=== PATIENT | female | born 1950 | race Caucasian/White ===

== ENCOUNTER 2020-10-09 09:00 | Emergency (ER) | payer MEDICARE, SELFPAY ==
--- NOTE | ~2020-10-09 | US_ITS ---
EXAMINATION: US venous doppler [facility] EXAM DATE: 10/09/2020 12:19 INDICATION: Left leg pain. TECHNIQUE: Multiple grayscale, color flow and Doppler images of the left lower extremity deep venous system were obtained and reviewed. There is no prior study for comparison. FINDINGS: The left common femoral, femoral and profunda veins demonstrate normal color flow, respirat ory variation, augmentation and compressibility. Compressibility, color flow confirmed within the le ft popliteal, posterior tibial, peroneal, and greater saphenous veins. IMPRESSION: 1. No left lower extremity deep venous thrombosis. Reviewed, dictated and finalized at location B. [employer] [employer]
--- NOTE | ~2020-10-09 | XR_ITS ---
EXAMINATION: XR ankle LT min 3V DATE: 10/09/2020 10:04 INDICATION: Lateral ankle swelling TECHNIQUE: Anteroposterior, lateral, mortise, and additional oblique view of the ankle were obtained. COMPARISON: 05/23/2017 FINDINGS: Soft tissue swelling is seen surrounding the ankle, particularly lateral to the distal fibu la. No fracture is identified. There is mild osteoarthritis of the ankle and midfoot. A chronic soft tissue calcification projects in the anterior subcutaneous soft tissues over the distal leg. IMPRESSION: 1. Ankle soft tissue swelling without acute osseous abnormality identified. Reviewed, dictated and finalized at location A. [facility] [employer]
[2020-10-09 09:28] VITALS: BP 170/69; PULSE 86; RESP 18; TEMP 36.9; O2SAT 98
--- NOTE | 2020-10-09 09:58 | PC.NURSE ---
Pt taken to xray at this time
[2020-10-09 10:15] VITALS: BP 152/57; PULSE 75; RESP 18; O2SAT 98
[2020-10-09] MEDS: LACTATED RINGERS 1,000 ML 999 ML IV CONT (10:41)
[2020-10-09 10:51] LABS: Anion Gap 5 mmol/L (8-16); Blood Urea Nitrogen 17 mg/dL (7-17); CRP < 0.5 mg/dL (<1.0); Calcium 9.4 mg/dL (8.4-10.2); Carbon Dioxide 31 mmol/L (22-30); Chloride 107 mmol/L (98-107); Estimated CRCL calculation 83 ml/min; Estimated Glomerular Filt Rate > 60; Glucose 131 mg/dL (65-105); Potassium 3.9 mmol/L (3.4-5.0); Sodium 143 mmol/L (137-145)
[2020-10-09 11:08] LABS: Erythrocyte Sedimentation Rate 17 mm/hr (0-20)
--- NOTE | 2020-10-09 11:36 | ED.GENADULT ---
HPI - General Adult General Chief complaint: Extremity Problem,Nontraumatic <Vicente Platt PA-C - Last Filed: 10/09/20 12:33> Stated complaint: left ankle swelling <COLBY Bustos Last Filed: 10/09/20 12:33> Time Seen by Provider: 10/09/20 09:28 <COLBY Bustos Last Filed: 10/09/20 12:33> Source: patient and family <COLBY Bustos Last Filed: 10/09/20 12:33> Mode of arrival: ambulatory <COLBY Bustos Last Filed: 10/09/20 12:33> Limitations: no limitations <COLBY Bustos Last Filed: 10/09/20 12:33> History of Present Illness HPI narrative: Patient is a 70-year-old female who presents with her POA for evaluation of left ankle pain and slight swelling patient notes that this began over the last several days patient presents with normal gait and is able to bear weight has history of rheumatoid arthritis followed by specialist for this and is currently on medications for rheumatoid arthritis patient had recent blood work which did not show any increase in inflammatory markers family had, 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 On arrival patient is in no distress and otherwise appears comfortable <COLBY Bustos Last Filed: 10/09/20 12:33> Related Data Home medications: Home Medications Medication Instructions Recorded Confirmed aripiprazole 5 mg tablet 5 mg PO DAILY 07/04/19 05/27/20 aspirin 81 mg tablet,delayed 81 mg PO DAILY 07/04/19 05/27/20 release gabapentin 300 mg capsule 300 mg PO .5 TIMES A DAY cap 07/04/19 05/27/20 methotrexate sodium 2.5 mg tablet 2.5 mg PO WEEKLY 07/04/19 05/27/20 naproxen sodium 220 mg tablet 220 mg PO Q12H 07/04/19 05/27/20 nortriptyline 25 mg capsule 25 mg PO DAILY 07/04/19 05/27/20 abatacept 125 mg/mL subcutaneous 125 mg SUB-Q .COMPLEX 07/05/19 05/27/20 auto-injector prednisone 1 mg tablet 3 mg PO DAILY tablet 07/05/19 05/27/20 ergocalciferol (vitamin D2) 1,250 1,250 mcg PO WEEKLY 05/27/20 05/27/20 mcg (50,000 unit) capsule <Vicente Platt PA-C - Last Filed: 10/09/20 12:33> Allergies/adverse reactions: Allergies Allergy/AdvReac Type Severity Reaction Status Date / Time No Known Allergies Allergy Verified 10/09/20 09:34 <Vicente Platt PA-C - Last Filed: 10/09/20 12:33> Review of Systems Review of Systems: All systems reviewed & are unremarkable except as noted in HPI and below <Vicente Platt PA-C - Last Filed: 10/09/20 12:33> [facility] Past Medical History Medical History: Medical History Alpha thalassemia minor Essential hypertension Hypovitaminosis D IFG (impaired fasting glucose) Impingement syndrome of right shoulder Left ventricular diastolic dysfunction, NYHA class 2 Obesity Recurrent major depressive disorder, in full remission Rheumatoid arthritis involving multiple sites Right shoulder pain <Vicente Platt PA-C - Last Filed: 10/09/20 12:33> Family History Family History: Family History Father Family history of cardiovascular disease Diabetes mellitus, Onset Age: 79 Sibling Carcinoma of colon Mother Family history of malignant neoplasm of breast in first degree relative Family history of congestive heart failure, Onset Age: 70 <Vicente Platt PA-C - Last Filed: 10/09/20 12:33> Social History Social History: Social History Smoking status: Never smoker Alcohol intake: never Gender identity (if verbalized by the patient): Female <Vicente Platt PA-C - Last Filed: 10/09/20 12:33> Exam Narrative: Exam Narrative: GENERAL: Well-appearing, obese, and in no acute distress. HEAD: Normocephalic, atra
[2020-10-09 12:33] VITALS: BP 163/57; PULSE 74; RESP 19; O2SAT 100
[2020-10-09 12:46] VITALS: BP 154/61; PULSE 79; RESP 18; O2SAT 98
== END 2020-10-09 13:04 | disposition home or self-care (01) ==
PROVIDERS: Emergency Medicine Emergency Medical Services; Emergency Provider General Practice; PCP Internal Medicine
DX: M25.572 Pain in left ankle and joints of left foot (principal); D56.0 Alpha thalassemia; I11.0 Hypertensive heart disease with heart failure; I50.30 Unspecified diastolic (congestive) heart failure; M06.9 Rheumatoid arthritis, unspecified; E55.9 Vitamin D deficiency, unspecified; Z79.82 Long term (current) use of aspirin; E66.9 Obesity, unspecified; Z68.33 Body mass index [BMI] 33.0-33.9, adult
CPT/HCPCS: 36415; 73610; 80048; 85652; 86140; 93971; 96361; 96365; 99284; J0131; J7120

== ENCOUNTER 2021-02-14 00:26 | Observation (INO) | payer MEDICARE, MEDICAID, SELFPAY ==
[2021-02-14] VITALS (8 sets, daily range): BP systolic 150–180; BP diastolic 51–74; PULSE 84–88; RESP 16–28; TEMP 36.1–36.6; O2SAT 97–100
--- NOTE | ~2021-02-14 | XR_ITS ---
EXAMINATION: XR shoulder RT min 2V INDICATION: Right shoulder pain TECHNIQUE: Four views of the right shoulder are submitted. COMPARISON: 05/27/2020 FINDINGS: Normal alignment. No fracture. There is advanced osteoarthritis of the acromioclavicular lebron int. A stable sclerotic lesion in the mid shaft of the humerus likely reflects an enchondroma. Soft t issues are unremarkable. IMPRESSION: 1. No acute osseous abnormality. Reviewed, dictated and finalized at location A.
--- NOTE | ~2021-02-14 | CT_ITS ---
EXAMINATION: CT chest abdomen pelvis w con DATE: 02/14/2021 02:15 INDICATION: Back and abdominal pain post fall TECHNIQUE: Computed tomography (CT) of the chest, abdomen, and pelvis was performed with 100 mL Omnip aque-350 intravenous contrast. Automated exposure control and iterative reconstruction technique were employed. The dose-length product was 1612.52 mGy-cm. COMPARISON: CT abdomen and pelvis dated 09/11/2018 FINDINGS: CHEST CT: Mosaic attenuation in the bilateral lungs likely related to expiratory phase of imaging with scattere d subsegmental air trapping due to small airway disease. No pleural effusion or pneumothorax. Cardiom egaly. No pericardial effusion. Thoracic aorta is normal in caliber with no dissection or acute traum atic aortic injury. No pathologically enlarged thoracic lymphadenopathy. Goiter with diffuse enlarge ment and heterogeneous enhancement of the thyroid. There are bridging osteophytes at multiple levels in the thoracic spine including at the margins of the vertebral bodies as well as across the spinous processes consistent with diffuse idiopathic skeletal hyperostosis (DISH). No fracture. ABDOMEN/PELVIS CT: Liver, gallbladder, bilateral adrenal glands and left kidney are normal. Couple subcentimeter low-att enuation likely right renal cysts. Small splenic calcific lesions consistent with old granulomatous d isease. Fatty atrophy of the pancreas most prominent at the head. No abnormal bowel wall thickening o r obstruction. The appendix is not visualized. No pericecal inflammatory change to suggest acute appe ndicitis. Bladder, uterus and bilateral adnexa are unremarkable. No free intraperitoneal gas or fluid . No pathologically enlarged abdominal or pelvic lymphadenopathy. Again seen are numerous small scler otic bone islands in the pelvis and proximal femurs consistent with osteopoikilosis. Lower lumbar spo ndylosis with mild degenerative disc disease but severe bilateral lower lumbar facet osteoarthritis. IMPRESSION: 1. No acute fracture or acute intrathoracic, abdominal or pelvic process. 2. Goiter. 3. Cardiomegaly. Reviewed, dictated and finalized at location A.
--- NOTE | ~2021-02-14 | US_ITS ---
EXAMINATION: US thyroid DATE: 02/14/2021 14:11 INDICATION: Goiter on CT TECHNIQUE: Multiple ultrasound images of the thyroid were obtained. COMPARISON: CT dated 02/14/2021 FINDINGS: The right thyroid lobe measures 7.2 x 4.3 x 3.2 cm. The left thyroid lobe measures 7.8 x 4.6 x 3.5 c m. The thyroid isthmus is thickened measuring 1.6 cm . There is heterogeneous echogenicity with coars ened echotexture throughout the thyroid. There are a few scattered echogenic and shadowing coarse maliha cifications but no discrete thyroid nodules. IMPRESSION: 1. Goiter without discrete nodules which could represent sequela of chronic thyroiditis. Reviewed, dictated and finalized at location A. IMPRESSION: 1. Goiter without discrete nodules which could represent sequela of chronic thy roiditis.
--- NOTE | ~2021-02-14 | CT_ITS ---
EXAMINATION: CT cervical spine wo con DATE: 02/14/2021 02:15 INDICATION: Neck pain TECHNIQUE: Computed tomography (CT) of the cervical spine was performed without intravenous contrast. The dose-length product (DLP) was 445.85 mGy-cm. Automated exposure control and iterative reconstruc tion technique were employed. COMPARISON: None FINDINGS: There is no fracture, dislocation, or subluxation. The vertebral body heights and alignment are normal. There is mild loss of intervertebral disc space height throughout the cervical spine. Th e odontoid is intact. The prevertebral soft tissues are normal. Small degenerative osteophytes projec t from the anterior endplates of multiple vertebral bodies. There is marked enlargement of the thyroi d gland with multiple bilateral thyroid nodules. IMPRESSION: 1. Mild cervical spondylosis without acute findings. 2. Marked enlargement of the thyroid. Reviewed, dictated and finalized at location A.
--- NOTE | ~2021-02-14 | CT_ITS ---
EXAMINATION: CT brain wo con INDICATION: Dizziness and fall COMPARISON: None TECHNIQUE: Standard unenhanced head CT. The dose-length product (DLP) was 605.33 mGy-cm. The mA was a djusted according to patient size. Iterative reconstruction technique was employed. FINDINGS: There is no acute intraparenchymal hemorrhage. No evidence of mass lesion. No evidence of a cute infarction. There is moderate periventricular and subcortical hypodensity probably related to sm all vessel ischemic disease. There is moderate prominence of the sulci and ventricles related to cere bral atrophy. Intracranial calcified cerebral atherosclerosis is noted. There are no extra-axial ghada ections. There is no mass effect or midline shift. Changes in the globes are likely from ocular lens surgery. There are fluid levels in the right sphenoid and right maxillary sinuses. IMPRESSION: 1. No acute intracranial abnormality. 2. Age related findings. Reviewed, dictated and finalized at location A.
--- NOTE | 2021-02-14 00:59 | ECG_ITS ---
Measurements Intervals [place] Rate: 81 P: 55 IN: 260 QRS: -28 QRSD: 104 T: 35 QT: 367 QTc: 428 Interpretive Statements SINUS RHYTHM WITH FIRST DEGREE AV BLOCK DELAYED PRECORDIAL R/S TRANSITION LOW QRS VOLTAGE IN PRECORDIAL LEADS INFERIOR INFARCT, AGE INDETERMINATE BASELINE ARTIFACT- II, III, AVF, V6 ABNORMAL ECG Electronically Signed On 02-14-2021 7:12:13 CDT by Oskar Delvalle D.O.
[2021-02-14 01:25] LABS: Basophils Absolute Auto 0.1 K/mm3 (0.0-0.1); Basophils Percent Auto 0.7 % (0.2-1.2); Eosinophils Absolute Auto 0.2 K/mm3 (0-0.3); Eosinophils Percent Auto 1.6 % (0-4.4); Hematocrit 34.3 % (37.0-47.0); Hemoglobin 10.3 g/dL (12.0-15.0); Immature Granulocyte Absolute 0.03 K/mm3 (0.00-0.031); Immature Granulocyte Percent A 0.2 % (0-0.5); Lymphocytes Percent Auto 9.7 % (18.3-44.2); Mean Corpuscular Hemoglobin 19.9 pg (26-34); Mean Corpuscular Volume 66.3 fl (80-100); Mean Platelet Volume 10.2 fl (7.4-10.4); Monocytes Absolute Auto 0.7 K/mm3 (0.1-0.6); Monocytes Percent Auto 5.5 % (2.6-8.5); Neutrophils Absolute Auto 11.1 K/mm3 (1.3-6.7); Neutrophils Percent Auto 82.3 % (45.5-73.1); Platelet Count Result 326 k/mm3 (150-375); Red Blood Count 5.17 M/mm3 (4.2-5.4); Red Cell Distribution Width 16.1 % (11.5-14.5); White Blood Count 13.4 K/mm3 (4.5-10.0)
[2021-02-14] MEDS: SODIUM CHLORIDE 0.9% IV 1,000 ML 999 ML IV CONT (01:39)
[2021-02-14] MEDS: ONDANSETRON INJ 4 MG/2 ML VIAL IV PUSH (01:39)
[2021-02-14 01:47] LABS: Alanine Aminotransferase 16 U/L (4-35); Albumin Level 3.9 g/dL (3.5-5.1); Alkaline Phosphatase 101 U/L (38-126); Anion Gap 8 mmol/L (8-16); Aspartate Amino Transferase 21 U/L (14-36); Bilirubin,Total 0.4 mg/dL (0.2-1.3); Blood Urea Nitrogen 21 mg/dL (7-17); Calcium 9.5 mg/dL (8.4-10.2); Carbon Dioxide 28 mmol/L (22-30); Chloride 106 mmol/L (98-107); Estimated CRCL calculation 61 ml/min; Estimated Glomerular Filt Rate > 60; Glucose 204 mg/dL (65-110); Magnesium 1.9 mg/dL (1.6-2.3); Potassium 3.7 mmol/L (3.4-5.0); Sodium 142 mmol/L (137-145)
[2021-02-14 01:58] LABS: Troponin I < 0.012 ng/mL (0.000-0.034)
--- NOTE | 2021-02-14 02:29 | ED.GENADULT ---
HPI - General Adult General Chief complaint: Dizziness Stated complaint: ground level fall Time Seen by Provider: 02/14/21 00:50 History of Present Illness HPI narrative: Patient 70-year-old female presents the emergency department with chief complaint of falls. The patient's family reports that recently her doctor increased her dose of gabapentin and that she had 2 ground-level falls today. The patient is reporting that she hurts in her right shoulder and throughout her back chest abdomen and neck. Patient reports is worse with movement and improved with rest. Patient states she also has discomfort in both of her legs that is more of her feeling from her neuropathy. Patient denies fever denies vomiting denies diarrhea Related Data Home Medications Medication Instructions Recorded Confirmed aripiprazole 5 mg tablet 5 mg PO DAILY 07/04/19 12/31/20 aspirin 81 mg tablet,delayed 81 mg PO DAILY 07/04/19 12/31/20 release methotrexate sodium 2.5 mg tablet 2.5 mg PO WEEKLY 07/04/19 12/31/20 naproxen sodium 220 mg tablet 220 mg PO Q12H 07/04/19 12/31/20 nortriptyline 25 mg capsule 25 mg PO DAILY 07/04/19 12/31/20 abatacept 125 mg/mL subcutaneous 125 mg SUB-Q .COMPLEX 07/05/19 12/31/20 auto-injector prednisone 1 mg tablet 3 mg PO DAILY tablet 07/05/19 12/31/20 ergocalciferol (vitamin D2) 1,250 1,250 mcg PO WEEKLY 05/27/20 12/31/20 mcg (50,000 unit) capsule gabapentin 300 mg capsule 300 mg PO .7 times daily cap 12/31/20 12/31/20 Allergies Allergy/AdvReac Type Severity Reaction Status Date / Time No Known Allergies Allergy Verified 12/31/20 10:22 Review of Systems Review of Systems: Narrative: A 10 system review of systems was completed on the patient and is negative except for what is stated in the HPI. Nursing and ancillary documentation was reviewed. [facility] Past Medical History Medical History Alpha thalassemia minor Essential hypertension Hypovitaminosis D IFG (impaired fasting glucose) Impingement syndrome of right shoulder Left ventricular diastolic dysfunction, NYHA class 2 Obesity Recurrent major depressive disorder, in full remission Rheumatoid arthritis involving multiple sites Right shoulder pain Family History Family History Father Family history of cardiovascular disease Diabetes mellitus, Onset Age: 79 Sibling Carcinoma of colon Mother Family history of malignant neoplasm of breast in first degree relative Family history of congestive heart failure, Onset Age: 70 Social History Social History Smoking status: Never smoker Second hand tobacco smoke exposure: No Alcohol intake: never Gender identity (if verbalized by the patient): Female Exam Narrative: Exam Narrative: GENERAL: Well-appearing, well-nourished, and in no acute distress. HEAD: Normocephalic, atraumatic. EYES: PERRLA and EOMI. ENT: Nares clear, no rhinorrhea or epistaxis. Mucous membranes moist. NECK: Supple. CHEST: Clear to auscultation. No respiratory distress. HEART: Regular rate and rhythm. No murmur heard. Normal peripheral pulses. ABDOMEN: Soft, nontender, nondistended, normal active bowel sounds. EXTREMITIES: Normal range of motion. No edema. SKIN: Warm, dry, no rash. NEURO: No focal deficits. Alert and oriented x3. PSYCH: Normal mood and affect. Course Course Emergency Course: The patient underwent a CT scan that showed no evidence of acute abnormality. When standing the patient up to try to ambulate her she complained of low back pain and reports that she just could not ambulate. Several attempts were made to ambulate the patient but given the patient lives independently the case was discussed with the hospitalist and the patient will be admitted for observation for physical therapy and Occupation
[2021-02-14 03:25] LABS: Add Urine Microscopic? YES; Appearance Urine Cloudy (Clear); Bacteria Urine Trace /hpf; Bilirubin Urine Negative (Negative); Blood Urine 1+ (Negative); Color Urine Yellow (Yellow); Glucose Urine UA 1+ mg/dL (Negative); Ketones Urine Negative (Negative); Leukocyte Esterase Ur Negative LEU/UL (Negative); Nitrate Urine Negative (Negative); Protein Urine Negative (Negative); Specific Grav Ur 1.025 (1.001-1.035); Squamous Epithelial Cell Urine Rare /hpf (Few); Urobilinogen Urine Negative mg/dL (<2.0); WBC Urine 0-3 /hpf
--- NOTE | 2021-02-14 05:10 | PM.IMHP ---
H&P: HPI History of Present Illness Date/Time: 02/14/21 05:10 Chief Complaint: Fall Narrative: this is a 70-year-old female with past medical history significant for peripheral neuropathy, hypertension, alpha thalassemia minor, impaired fasting glucose, diastolic heart failure class 2, rheumatoid arthritis on DMARDs. Patient came to the emergency room after she has had 2 falls from her feet mechanical fall no loss of consciousness patient had recently been increased her gabapentin and added extra dose of amitriptyline as per primary care physician due to patient's neuropathy pain. she denies any dizziness lightheadedness near syncope or syncope, no nausea no vomiting no abdominal pain no diarrhea, no shortness of breath no cough no sputum production, no fevers no rigors no chills. she is complaining of back pain bilateral shoulder pain. Preliminary workup has been essentially nonrevealing. Review of Systems Review of Systems: Narrative: back pain and bilateral shoulder pain recurrent falls worsening peripheral neuropathy pain Constitutional: Constitutional: Reports body ache(s), Denies chills, Denies fatigue and Denies fever(s) Eyes: Eyes: Denies change in vision ENT: Denies dysphagia, Denies vertigo, Denies dizziness, Denies nasal congestion, Denies nasal discharge, Denies nasal obstruction and Denies odynophagia Cardiovascular: Cardiovascular: Denies irregular heart rhythm, Denies radiating jaw, neck or arm pain, Denies palpitations, Denies dyspnea, Denies dyspnea on exertion and Denies orthopnea Respiratory: Respiratory: Denies cough and Denies dyspnea Gastrointestinal: Gastrointestinal: Denies abdominal pain, Denies nausea and Denies vomiting Genitourinary: Genitourinary: Reports no additional female genitourinary complaints Musculoskeletal: Musculoskeletal: Reports back pain, Reports myalgias and Reports arthralgias Integumentary/Breasts: Skin/Breast: Reports system reviewed and no additional complaints, except as docu Neurologic: Denies vertigo, Denies dizziness, Denies syncope, Denies focal weakness, Denies Sensory deficit (Neuro) and Reports paresthesias Psychiatric: Psychiatric: Reports no additional psychiatric complaints Endocrine: Endocrine: Reports no additional endocrine complaints Hematologic/Lymphatic: Hematologic/Lymphatic: Reports no additional hematologic/lymphatic complaints Allergic/Immunologic: Allergic/Immunologic: Reports no additional allergic/immunologic complaints PMFSH Past Medical History Medical History Alpha thalassemia minor Essential hypertension Hypovitaminosis D IFG (impaired fasting glucose) Impingement syndrome of right shoulder Left ventricular diastolic dysfunction, NYHA class 2 Obesity Recurrent major depressive disorder, in full remission Rheumatoid arthritis involving multiple sites Right shoulder pain Family History Family History Father Family history of cardiovascular disease Diabetes mellitus, Onset Age: 79 Sibling Carcinoma of colon Mother Family history of malignant neoplasm of breast in first degree relative Family history of congestive heart failure, Onset Age: 70 Social History Social History Smoking status: Never smoker Second hand tobacco smoke exposure: No Alcohol intake: never Gender identity (if verbalized by the patient): Female Meds Home Medications and Allergies Home Medications Medication Instructions Recorded Confirmed Type aripiprazole 5 mg tablet 5 mg PO DAILY 07/04/19 12/31/20 History aspirin 81 mg tablet,delayed 81 mg PO DAILY 07/04/19 12/31/20 History release methotrexate sodium 2.5 mg tablet 2.5 mg PO WEEKLY 07/04/19 12/31/20 History naproxen sodium 220 mg tablet 220 mg PO Q12H 07/04/19 12/31/20 History nortriptyline
[2021-02-14 05:31] LABS: Glucose Point of Care 122 mg/dl (65-105)
--- NOTE | 2021-02-14 06:41 | ADMGEN ---
This patient, Jaelyn Araiza, was admitted to [facility] Surg Room 307-01. Patient/family oriented to hospital policies and general routines including ID bracelet, bed and alarms, visiting hours, pain management, procedures, bathroom and other care routines, personal items, smoking policy, room service/diet, and visiting hours. Information on how to activate the Rapid Response Team has been discussed. Patient/Family are encouraged to report perceived risks to care and to ask questions if they do not understand what they are told or what they should do.
[2021-02-14 08:00] LABS: Glucose Point of Care 97 mg/dl (65-105)
--- NOTE | 2021-02-14 11:50 | PM.IMPN ---
Progress Note: A&P Assessment and Plan (1) Falls frequently: Code(s): R29.6 - Repeated falls Status: Acute Assessment and Plan: place in observation vitals as per unit protocol 1800 calorie restricted diet PT OT consult falls precaution supportive care CT head abdomen pelvis and chest with no acute abnormality (2) Peripheral neuropathy: Code(s): G62.9 - Polyneuropathy, unspecified Status: Acute Assessment and Plan: on gabapentin and amitriptyline had her gabapentin recently increased suspect increasing pending contributing to patient's recurrent falls will hold gabapentin and amitriptyline (3) Rheumatoid arthritis involving multiple sites: Qualifiers: Rheumatoid factor presence: unspecified presence Qualified Code(s): M06.9 - Rheumatoid arthritis, unspecified Code(s): M06.9 - Rheumatoid arthritis, unspecified Status: Acute Assessment and Plan: on methotrexate follow-up in outpatient setting (4) IFG (impaired fasting glucose): Code(s): R73.01 - Impaired fasting glucose Status: Acute Assessment and Plan: 1800 calorie restricted (5) Essential hypertension: Code(s): I10 - Essential (primary) hypertension Status: Acute Assessment and Plan: continue home meds continue to monitor (6) Left ventricular diastolic dysfunction, NYHA class 2: Code(s): I51.9 - Heart disease, unspecified Status: Acute Assessment and Plan: stable continue to monitor (7) Impingement syndrome of right shoulder: Code(s): M75.41 - Impingement syndrome of right shoulder Status: Acute Assessment and Plan: pain management Tylenol as needed (8) Recurrent major depressive disorder, in full remission: Code(s): F33.42 - Major depressive disorder, recurrent, in full remission Status: Acute Assessment and Plan: continue aripiprazole (9) Alpha thalassemia minor: Code(s): D56.3 - Thalassemia minor Status: Acute Assessment and Plan: continue to monitor stable (10) Obesity: Code(s): E66.9 - Obesity, unspecified Status: Acute Assessment and Plan: lifestyle and diet modifications Subjective Date/time seen: 02/14/21 11:50 Interval history: admitted earlier today. Sat on the chair with help of physical therapy/ nursing staff. Complains of back pain from the fall. No shortness of breath or chest pain. Denies any dizziness /lightheadedness Review of Systems Review of Systems: All systems reviewed & are unremarkable except as noted in HPI and below ( HPI) Objective Data Vital Signs Vital Signs: Vital Signs - 24 hr 02/14/21 00:38 02/14/21 00:45 02/14/21 03:09 Temperature 97.8 F Pulse Rate 88 88 84 Respiratory Rate 20 28 H 18 Blood Pressure 173/73 H 180/54 H 177/74 H Pulse Oximetry 98 99 98 02/14/21 06:05 Temperature Pulse Rate 86 Respiratory Rate Blood Pressure 158/72 H Pulse Oximetry 99 Intake/Output Intake/Output: Intake & Output 02/11/21 02/12/21 02/13/21 02/14/21 23:59 23:59 23:59 23:59 Intake Total 1360 Balance 1360 Meds/Results Medications: Active Medications Generic Name Dose Route Start Last Admin Trade Name Freq PRN Reason Stop Dose Admin Morphine Sulfate 4 mg 02/14/21 04:40 Morphine Sulfate (*Crx) 4 Mg/Ml Inj IV PUSH Q2H PRN Pain Rated 7-10 Ondansetron HCl 4 mg 02/14/21 04:40 Ondansetron Inj 4 Mg/2 Ml Vial IV PUSH Q4H PRN Nausea Radiology Results: ITS Impressions Shoulder X-Ray 02/14/21 10:34 IMPRESSION: 1. No acute osseous abnormality. Labs Labs: Laboratory Results - last 24 hr 02/14/21 02/14/21 02/14/21 01:18 01:18 01:18 WBC 13.4 H RBC 5.17 Hgb 10.3 L Hct 34.3 L MCV 66.3 L MCH 19.9 L MCHC 30.0 L RDW 16.1 H Plt Count 326 MPV 10.2 Immature Gran % (Auto) 0.2 Neut
[2021-02-14 12:44] LABS: Glucose Point of Care 101 mg/dl (65-105)
[2021-02-14 17:23] LABS: Glucose Point of Care 123 mg/dl (65-105)
[2021-02-14] MEDS: HYDROcodone/acetaminophen (*CRX) 5-325 MG TABLET 1 TAB PO (18:06)
[2021-02-14 19:02] LABS: Thyroid Stimulating Hormone Reflex 0.748 uIU/mL (0.465-4.68)
[2021-02-14] MEDS: MORPHINE SULFATE (*CRX) 4 MG/ML INJ IV PUSH (20:58)
[2021-02-14] MEDS: NORTRIPTYLINE HCL 25 MG CAPSULE 75 MG PO (21:05)
[2021-02-14] MEDS: GABAPENTIN 300 MG CAPSULE 600 MG PO (21:06)
[2021-02-14 21:58] LABS: Glucose Point of Care 147 mg/dl (65-105)
[2021-02-15 03:44] VITALS: O2SAT 96
[2021-02-15 06:00] VITALS: BP 138/47; PULSE 84; RESP 17; TEMP 37; O2SAT 100
[2021-02-15 06:36] LABS: Basophils Absolute Auto 0.1 K/mm3 (0.0-0.1); Basophils Percent Auto 0.8 % (0.2-1.2); Eosinophils Absolute Auto 0.3 K/mm3 (0-0.3); Eosinophils Percent Auto 3.1 % (0-4.4); Hematocrit 32.3 % (37.0-47.0); Hemoglobin 9.7 g/dL (12.0-15.0); Immature Granulocyte Absolute 0.04 K/mm3 (0.00-0.031); Immature Granulocyte Percent A 0.4 % (0-0.5); Lymphocytes Absolute Auto 1.45 K/mm3 (0.9-3.2); Lymphocytes Percent Auto 14.6 % (18.3-44.2); Mean Corpuscular Volume 66.5 fl (80-100); Mean Platelet Volume 10.7 fl (7.4-10.4); Monocytes Absolute Auto 0.7 K/mm3 (0.1-0.6); Monocytes Percent Auto 6.5 % (2.6-8.5); Neutrophils Absolute Auto 7.4 K/mm3 (1.3-6.7); Neutrophils Percent Auto 74.6 % (45.5-73.1); Platelet Count Result 336 k/mm3 (150-375); Red Blood Count 4.86 M/mm3 (4.2-5.4)
[2021-02-15 06:47] LABS: Anion Gap 7 mmol/L (8-16); Blood Urea Nitrogen 17 mg/dL (7-17); Calcium 9.1 mg/dL (8.4-10.2); Carbon Dioxide 27 mmol/L (22-30); Chloride 108 mmol/L (98-107); Estimated CRCL calculation 69 ml/min; Estimated Glomerular Filt Rate > 60; Glucose 106 mg/dL (65-110); Potassium 3.7 mmol/L (3.4-5.0); Sodium 142 mmol/L (137-145)
[2021-02-15 07:55] LABS: Glucose Point of Care 120 mg/dl (65-105)
[2021-02-15 08:45] VITALS: O2SAT 96
[2021-02-15] MEDS: GABAPENTIN 300 MG CAPSULE 600 MG PO ×2 (09:45→12:34)
[2021-02-15] MEDS: POTASSIUM CHLORIDE 10 MEQ TABLET.ER PO (10:33)
[2021-02-15] MEDS: ASPIRIN 81 MG ENTERIC TABLET PO (10:33)
[2021-02-15 10:34] VITALS: PULSE 86
[2021-02-15] MEDS: FUROSEMIDE 40 MG TABLET PO (10:34)
[2021-02-15] MEDS: FOLIC ACID 1 MG TABLET PO (10:34)
[2021-02-15] MEDS: METOPROLOL SUCCINATE EXT REL 25 MG TABCR PO (10:34)
[2021-02-15] MEDS: predniSONE 1 MG TABLET 3 MG PO (10:34)
[2021-02-15 12:28] LABS: Glucose Point of Care 132 mg/dl (65-105)
[2021-02-15 14:00] VITALS: BP 142/49; PULSE 85; RESP 20; TEMP 36.4; O2SAT 100
--- NOTE | 2021-02-15 15:49 | PM.IMPN ---
Progress Note: A&P Assessment and Plan (1) Falls frequently: Code(s): R29.6 - Repeated falls Status: Acute Assessment and Plan: place in observation vitals as per unit protocol 1800 calorie restricted diet PT OT consult falls precaution supportive care CT head abdomen pelvis and chest with no acute abnormality (2) Peripheral neuropathy: Code(s): G62.9 - Polyneuropathy, unspecified Status: Acute Assessment and Plan: on gabapentin and amitriptyline had her gabapentin recently increased suspect increasing pending contributing to patient's recurrent falls will hold gabapentin and amitriptyline Will lower the gabapentin dose to 300 mg 5 times a day and continue nortriptyline 75 mg at bedtime (3) Rheumatoid arthritis involving multiple sites: Qualifiers: Rheumatoid factor presence: unspecified presence Qualified Code(s): M06.9 - Rheumatoid arthritis, unspecified Code(s): M06.9 - Rheumatoid arthritis, unspecified Status: Acute Assessment and Plan: on methotrexate follow-up in outpatient setting (4) IFG (impaired fasting glucose): Code(s): R73.01 - Impaired fasting glucose Status: Acute Assessment and Plan: 1800 calorie restricted (5) Essential hypertension: Code(s): I10 - Essential (primary) hypertension Status: Acute Assessment and Plan: continue home meds continue to monitor (6) Left ventricular diastolic dysfunction, NYHA class 2: Code(s): I51.9 - Heart disease, unspecified Status: Acute Assessment and Plan: stable continue to monitor (7) Impingement syndrome of right shoulder: Code(s): M75.41 - Impingement syndrome of right shoulder Status: Acute Assessment and Plan: pain management Tylenol as needed (8) Recurrent major depressive disorder, in full remission: Code(s): F33.42 - Major depressive disorder, recurrent, in full remission Status: Acute Assessment and Plan: continue aripiprazole (9) Alpha thalassemia minor: Code(s): D56.3 - Thalassemia minor Status: Acute Assessment and Plan: continue to monitor stable (10) Obesity: Code(s): E66.9 - Obesity, unspecified Status: Acute Assessment and Plan: lifestyle and diet modifications Additional Plan discussed with therapy and nursing staff Work with therapy today improving however which She is still needing assistance suggested rehab placement she declines home health or rehab placement Discussed with her sister who is the [id number]. She is agreeable for home health placement Will work with therapy in the morning tomorrow and go from there Subjective Date/time seen: 02/15/21 15:49 Interval history: feels much better today work with therapy with improved mobility but he still needed some assistance. Spoke with the therapist as well as the nursing staff. Call her power district attorney who is her sister over the phone and discussed and updated her status She reports her back pain is much better Review of Systems Review of Systems: All systems reviewed & are unremarkable except as noted in HPI and below ( HPI) Exam Narrative: Exam Narrative: GENERAL: Well-appearing, well-nourished, and in no acute distress. HEAD: Normocephalic, atraumatic. EYES: PERRLA and EOMI. ENT: Nares clear, no rhinorrhea or epistaxis. Mucous membranes moist. NECK: Supple. CHEST: Clear to auscultation. No respiratory distress. HEART: Regular rate and rhythm. No murmur heard. Normal peripheral pulses. ABDOMEN: Soft, nontender, nondistended, normal active bowel sounds. EXTREMITIES: Normal range of motion. No edema. SKIN: Warm, dry, no rash. NEURO: No focal deficits. Alert and oriented x3. PSYCH: Normal mood and affect. Objective Data Vital Signs Vital Signs: Vital Signs - 24 hr 02/14/21 20:15 02/14/21 22:00 02/15/21 03:44 Temperature 97.6
[2021-02-15 17:48] LABS: Glucose Point of Care 163 mg/dl (65-105)
[2021-02-15] MEDS: GABAPENTIN 300 MG CAPSULE PO ×2 (18:32→20:24)
[2021-02-15] MEDS: NORTRIPTYLINE HCL 25 MG CAPSULE 75 MG PO (20:24)
[2021-02-15 21:31] LABS: Glucose Point of Care 124 mg/dl (65-105)
[2021-02-15 22:00] VITALS: BP 146/58; PULSE 81; RESP 18; TEMP 36.2; O2SAT 99
[2021-02-16 06:00] VITALS: BP 140/62; PULSE 84; RESP 18; TEMP 36.6; O2SAT 91
[2021-02-16 08:59] VITALS: PULSE 80; RESP 18; O2SAT 91
[2021-02-16] MEDS: FUROSEMIDE 40 MG TABLET PO (08:59)
[2021-02-16] MEDS: ASPIRIN 81 MG ENTERIC TABLET PO (08:59)
[2021-02-16] MEDS: FOLIC ACID 1 MG TABLET PO (08:59)
[2021-02-16] MEDS: POTASSIUM CHLORIDE 10 MEQ TABLET.ER PO (08:59)
[2021-02-16] MEDS: METOPROLOL SUCCINATE EXT REL 25 MG TABCR PO (08:59)
[2021-02-16] MEDS: predniSONE 1 MG TABLET 3 MG PO (08:59)
[2021-02-16] MEDS: GABAPENTIN 300 MG CAPSULE PO ×4 (09:00→17:37)
[2021-02-16 11:02] LABS: Glucose Point of Care 113 mg/dl (65-105)
[2021-02-16 14:00] VITALS: BP 119/42; PULSE 77; RESP 18; TEMP 36.2; O2SAT 99
--- NOTE | 2021-02-16 16:13 | PM.DS ---
DS: Admitting Diagnosis Admitting Diagnosis Admitting Diagnosis: frequent falls back pain and unable to ambulate DS: Discharge Diagnosis Discharge Diagnosis (1) Peripheral neuropathy: Code(s): G62.9 - Polyneuropathy, unspecified Status: Acute (2) Falls frequently: Code(s): R29.6 - Repeated falls Status: Acute (3) Inability to walk: Code(s): R26.2 - Difficulty in walking, not elsewhere classified Status: Acute (4) Rheumatoid arthritis involving multiple sites: Qualifiers: Rheumatoid factor presence: unspecified presence Qualified Code(s): M06.9 - Rheumatoid arthritis, unspecified Code(s): M06.9 - Rheumatoid arthritis, unspecified Status: Acute (5) Alpha thalassemia minor: Code(s): D56.3 - Thalassemia minor Status: Acute DS: Summary Hospital Course Hospital Course: this is a 70-year-old female with past medical history significant for peripheral neuropathy, hypertension, alpha thalassemia minor, impaired fasting glucose, diastolic heart failure class 2, rheumatoid arthritis on DMARDs. Patient came to the emergency room after she has had 2 falls from her feet mechanical fall no loss of consciousness patient had recently been increased her gabapentin and added extra dose of amitriptyline as per primary care physician due to patient's neuropathy pain. she denies any dizziness lightheadedness near syncope or syncope, no nausea no vomiting no abdominal pain no diarrhea, no shortness of breath no cough no sputum production, no fevers no rigors no chills. she is complaining of back pain bilateral shoulder pain. Preliminary workup has been essentially nonrevealing. she had CT scan chest abdomen pelvis which did not show any acute abnormality. She was admitted for observation and PT OT evaluation. She was placed on a lower dose of gabapentin 300 mg 5 times a day however continued on nortriptyline 75 mg at bedtime. she improved significantly with resolution of her symptoms and back pain. She worked with therapy who suggested that she goes for further rehabilitation however she refused to go to any subacute rehabilitation. She and her power in home aide are agreeable to go for home health which was arranged at the time of discharge. She remained hemodynamically stable throughout her hospitalization. Status at Discharge Functional status at discharge: uses cane/walker Overall status at discharge: patient is progressing back to baseline Time Spent with Patient Time attestation: Total time spent providing and/or coordinating discharge services:45 minutes Exam Narrative: Exam Narrative: GENERAL: Well-appearing, well-nourished, and in no acute distress. HEAD: Normocephalic, atraumatic. EYES: PERRLA and EOMI. ENT: Nares clear, no rhinorrhea or epistaxis. Mucous membranes moist. NECK: Supple. CHEST: Clear to auscultation. No respiratory distress. HEART: Regular rate and rhythm. No murmur heard. Normal peripheral pulses. ABDOMEN: Soft, nontender, nondistended, normal active bowel sounds. EXTREMITIES: Normal range of motion. No edema. SKIN: Warm, dry, no rash. NEURO: No focal deficits. Alert and oriented x3. PSYCH: Normal mood and affect. DS: Data Data Completed and Pending Labs on day of discharge: Labs from last 24 hours 02/16/21 02/15/21 02/15/21 10:59 20:30 17:45 POC Capillary Glucose 113 H 124 H 163 H Imaging Radiologist's impression: ITS Impressions Shoulder X-Ray 02/14/21 10:34 IMPRESSION: 1. No acute osseous abnormality. Head CT 02/14/21 15:56 IMPRESSION: 1. No acute intracranial abnormality. 2. Age related findings. Cervical Spine CT 02/14/21 15:59 IMPRESSION: 1. Mild cervical spondylosis without acute findings. 2. Marked enlargement of the thyroid. Thyroid Ultrasound 02/14/21 16:50 IMPRESSION: 1. Goiter without discrete nodules which could represent sequela of chronic thyroiditis. Chest/Abdomen/Pelv
[2021-02-16 17:12] LABS: Glucose Point of Care 126 mg/dl (65-105)
== END 2021-02-16 17:55 | disposition home health service (06) ==
LOC: ANHED 04:45 → ANH3MEDSUR 02-16 16:13
PROVIDERS: Admitting Provider Internal Medicine; Emergency Provider Emergency Medicine; PCP Internal Medicine; Visit Provider Internal Medicine
DX: G62.9 Polyneuropathy, unspecified (principal); R29.6 Repeated falls; R42 Dizziness and giddiness; D56.3 Thalassemia minor; E55.9 Vitamin D deficiency, unspecified; I11.0 Hypertensive heart disease with heart failure; I50.30 Unspecified diastolic (congestive) heart failure; M75.41 Impingement syndrome of right shoulder; R73.01 Impaired fasting glucose; F33.42 Major depressive disorder, recurrent, in full remission; M06.9 Rheumatoid arthritis, unspecified; E66.9 Obesity, unspecified; Z68.33 Body mass index [BMI] 33.0-33.9, adult; Z79.82 Long term (current) use of aspirin
CPT/HCPCS: 36415; 70450; 71260; 72125; 73030; 74177; 76536; 80048; 80053; 81001; 82948; 83605; 83735; 84443; 84484; 85025; 93005; 96361; 96374; 96375; 97110; 97116; 97162; 97165; 97530; 97535; 99285; A9270; G0378; J2270; J2405; J7030; Q9967

== ENCOUNTER → 2023-08-05 10:13 | Outpatient (CLI) | payer MEDICARE, MEDICAID, SELFPAY ==
--- NOTE | ~2023-08-05 | XR_ITS ---
Right Humerus Technique: AP and lateral views were obtained. Clinical History: Pain Findings: No fracture or dislocation is seen. Osseous alignment is anatomic. Probable small chondroid lesion of the distal humeral shaft measuring 6-7 mm. There is mild degenerative change of the AC marcelina nt. Soft tissues are unremarkable. Impression: Mild degenerative changes AC joint. 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 Reviewed, dictated and finalized at location M. DE ATTENDANT Impression: Mild degenerative changes AC joint. 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
--- NOTE | ~2023-08-05 | XR_ITS ---
Right Shoulder Technique: AP and scapular Y views were obtained. Clinical History: Pain Findings: No fracture or dislocation is seen. Osseous alignment is anatomic. There is mild degenerati ve change of the glenohumeral and acromioclavicular joints.. Soft tissues are unremarkable. Impression: Mild degenerative changes, as above. Reviewed, dictated and finalized at location . H TANK CONTROLLER Impression: Mild degenerative changes, as above.
--- NOTE | ~2023-08-05 | XR_ITS ---
Clinical Indication: Shortness of breath PA and lateral views of the chest: Comparison: None Findings: The lungs are clear, without evidence of focal consolidation or pleural effusion. Cardiome diastinal silhouette is within normal limits. Bones and soft tissues are unremarkable. Impression: Normal chest. Reviewed, dictated and finalized at [facility]. ING CHEF Impression: Normal chest.
== END ==
PROVIDERS: PCP Nurse Practitioner Family; Visit Provider Nurse Practitioner Family
DX: M79.601 Pain in right arm (principal); R06.02 Shortness of breath; M19.012 Primary osteoarthritis, left shoulder
CPT/HCPCS: 71046; 73030; 73060

== ENCOUNTER 2023-12-02 09:50 | Outpatient (CLI) | payer MEDICARE, MEDICAID, SELFPAY ==
--- NOTE | ~2023-12-02 | XR_ITS ---
XR chest 2V 12/02/2023 10:09 Indication: Persistent cough and cold symptoms Procedure: 2 view chest Comparison: 08/05/2023 Findings: Heart size normal. No focal air space disease, pulmonary edema, pleural effusion or suspect ed pneumothorax. No acute osseous abnormality. Impression: 1: No acute cardiopulmonary disease. Reviewed, dictated and finalized at location B. Impression: 1: No acute cardiopulmonary disease.
== END 2023-12-02 09:51 | disposition home or self-care (01) ==
PROVIDERS: PCP Nurse Practitioner Family; Visit Provider Nurse Practitioner Family
DX: R05.9 Cough, unspecified (principal)
CPT/HCPCS: 71046

== ENCOUNTER 2025-01-01 12:49 | Outpatient (CLI) | payer MEDICARE, MEDICAID, SELFPAY ==
--- NOTE | ~2025-01-01 | US_ITS ---
EXAMINATION:US venous doppler LE BI INDICATION:Skin changes TECHNIQUE: Multiple grayscale, color flow and Doppler images of the right and left lower extremity de ep venous systems were obtained and reviewed. COMPARISON:No prior studies for comparison. FINDINGS: The common femoral, superficial femoral and popliteal veins demonstrate normal respiratory variation, augmentation and compressibility. Color flow is also seen within the posterior tibial, pe roneal, greater saphenous and profunda veins. IMPRESSION: 1: No lower extremity deep venous thrombosis. Reviewed, dictated and finalized at location A.
--- OUTSIDE RECORDS SUMMARY | 2025-01-01 12:56 | XMS_ITS | CONTINUITY OF CARE DOCUMENT ---
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 Name Role Phone Osiel KAY, [place] Unavailable LELE KAY, HAILEE L Unavailable HAILEE ROYAL MD Unavailable PROBLEMS Condition Status Date Provider Notes Edema active ARSLAN CARLISLE MD UPPER RESPIRATORY INFECTION, ACUTE completed - ARSLAN CARLISLE MD Rheumatoid arthritis active ARSLAN CARLISLE MD HTN essential active ARSLAN CARLISLE MD Depression active ARSLAN CARLISLE MD ENCOUNTERS Date Type Provider Location Encounter Diag nosis - In-person encounter Office Visit ARSLAN CARLISLE MD [facility] - In-person encounter Office Visit ARSLAN CARLISLE MD [facility] - In-person encounter Office Visit ARSLAN CARLISLE MD [facility] - In-person encounter Office Visit ARSLAN CARLISLE MD [facility] - In-person encounter Office Visit ARSLAN CARLISLE MD [facility] - In-person encounter Office Visit ARSLAN CARLISLE MD [facility] - In-person encounter Office Visit ARSLAN CARLISLE MD [facility] - In-person encounter Office Visit ARSLAN CARLISLE MD [facility] - In-person encounter Office Visit ARSLAN CARLISLE MD [facility] UPPER RESPIRATORY INFECTION, ACUTERheumatoid arthritisHTN essentialDepression - In-person encounter Office Visit [facility] - In-person encounter Office Visit [facility] - In-person encounter Office Visit [facility] - In-person encounter Office Visit [facility] - In-person encounter Office Visit [facility] - In-person encounter Office Visit [facility] - In-person encounter Office Visit [facility] - In-person encounter Office Visit [facility] RESULTS Date Observation Value Provider Reference Range Interpretation Location lipoprotein, beta, serum, point, quantitative, calculated 109 mg/dL [facility] 0-99 High very low density lipoproteins 26 mg/dL [facility] 5-40 HDL cholesterol, serum 63 mg/dL [facility] >39 triglyceride, serum, random 132 mg/dL [facility] 0-149 cholesterol, serum 198 mg/dL [facility] [phone]/03/ 02 alanine aminotransferase (SGPT), serum 12 1/L [facility] 0-32 aspartate aminotransferase (SGOT), serum 19 1/L [facility] 0-40 alkaline phosphatase, serum 82 1/L [facility] 39-117 bilirubin, serum, total 0.4 mg/dL [facility] 0.0-1.2 albumin/globulin ratio, serum 2.0 [facility] 1.2-2.2 globulin, serum 2.1 [facility] 1.5-4.5 albumin, serum 4.1 g/dL [facility] 3.6-4.8 protein, total, serum 6.2 g/dL [facility] 6.0-8.5 calcium, serum 9.3 mg/dL [facility] 8.7-10.3 carbon dioxide, venous blood 20 mmol/L [facility] 18-29 chloride, serum 102 mmol/L [facility] 96-106 potassium, serum 4.1 mmol/L [facility] 3.5-5.2 sodium, serum 143 mmol/L [facility] [phone]/03/ 02 urea nitrogen/creatinine ratio, serum 25 [facility] 12-28 eGFR if not 89 mL/min/{1 .73_m2} [facility] >59 creatinine, serum 0.69 mg/dL [facility] 0.57-1.00 urea nitrogen, blood 17 mg/dL [facility] 8-27 blood glucose, random 128 mg/dL [facility] 65-99 High basophil count, absolute 0.1 x10E3/uL [facility] 0.0-0.2 Eosinophil Absolute Count 0.2 X10E3/UL [facility] 0.0-0.4 monocyte count, blood, automated 0.6 X10E3/UL [facility] 0.1-0.9 lymphocyte count, blood, automated 1.1 X10E3/UL [facility] 0.7-3.1 Absolute Neutrophils 5.5 X10E3/UL [facility] 1.4-7.0 basophils as percent of blood leukocytes 1 % [facility] Not Estab. eosinophils as percent of blood leukocytes 3 % [facility] Not Estab. monocytes as percent of blood leukocytes 8 % [facility] Not Estab. lymphocytes as percent of blood leukocytes 15 % [facility] Not Estab. neutrophils as percent of blood leukocytes 73 % [facility] Not Estab. platelet count 350 X10E3/UL [facility] [phone]/03/ 02 red blood cell distribution width 16.7 % [facility] 12.3-15.4 High mean corpuscular hemoglobin concentration, RBC 31.9 G/DL [facility] 31.5-35.7 mean corpuscular hemoglobin, RBC 20.0 pg [facility] 26.6-33.0 Low mean corpuscular volume, RBC 63 fL [facility] 79-97 Low hematocrit, blood 32.9 % [facility] 34.0-46.6 Low hemoglobin, blood 10.5 g/dL [facility] 11.1-15.9 Low erythrocyte (RBC) count 5.25 X10E6/UL [facility] 3.77-5.28 leukocyte count, blood 7.5 X10E3/UL [facility] 3.4-10.8 hemoglobin A1C, blood, as % of total hemoglobin 6.0 % [facility] 4.8-5.6 High thyroid stimulating hormone, serum 0.367 ??IU/ML [facility] 0.270 - 4.200 very low density lipoproteins 24.6 mg/dL [facility] 5.0 - 40.0 LDL/HDL (low-density lipoprotein/high-den sity lipoprotein) ratio 2.0 [facility], beta, serum, point, quantitative, calculated 126.4 (?) [facility] 0.0 - 100.0 High HDL cholesterol, serum 62.0 mg/dL [facility] 45.0 - 65.0 cholesterol, serum 213.0 mg/dL [facility] 0.0 - 200.0 High triglyceride, serum, fasting 123.0 mg/dL [facility] 0.0 - 150.0 anion gap, serum 10.4 [facility] - albumin/globulin ratio, serum 2.9 g/dL [facility] 1.1 - 2.5 High globulin, serum 2.2 [facility] 2.3 - 3.8 Low urea nitrogen/creatinine ratio, serum 17.5 [facility] - Estimated Glomerular Filtration Rate (calc) 76.0 (?) [facility] 59.0 - chloride, serum 103.6 mmol/L [facility] 98.0 - 107.0 potassium, serum 4.3 mmol/L [facility] 3.5 - 5.1 sodium, serum 144.0 mmol/L [facility] 136.0 - 145.0 creatinine, serum 0.8 mg/dL [facility] 0.5 - 1.0 carbon dioxide, venous blood 30.0 mmol/L [facility] 23.0 - 31.0 albumin, serum 4.4 g/dL [facility] 3.5 - 5.2 calcium, serum 9.9 mg/dL [facility] 8.6 - 10.2 aspartate aminotransferase (SGOT), serum 14.0 1/L [facility] 0.0 - 32.0 alkaline phosphatase, serum 85.0 1/L [facility] 40.0 - 130.0 alanine aminotransferase (SGPT), serum 10.0 1/L [facility] 0.0 - 33.0 protein, total, serum 6.6 g/dL [facility] 6.6 - 8.7 bilirubin, serum, total 0.4 mg/dL [facility] 0.0 - 1.2 urea nitrogen, blood 14.0 mg/dL [facility] 8.0 - 23.0 blood glucose, random 142.0 mg/dL [facility] 74.0 - 99.0 High red blood cell distribution width, size density 39.2 fL [facility] - immature granulocytes, percentage of total cells, blood 0.3 % [facility] - nucleated red blood cells as percent of blood leukocytes 0.0 % [facility] - red blood cell (erythrocyte) count, per high power field 0.0 10*3/UL [facility] - eosinophils as percent of blood leukocytes 1.0 % [facility] - neutrophils as percent of blood leukocytes 86.9 % [facility] - Absolute Neutrophils 8.7 CELLS/UL [facility] 1.5 - 7.8 High basophils as percent of blood leukocytes 0.9 % [facility] - Absolute Basophils 0.1 CELLS/UL [facility] 0.0 - 0.2 monocytes as percent of blood leukocytes 2.7 % [facility] - Absolute Monocytes 0.3 CELLS/UL [facility] 0.2 - 1.0 lymphocytes as percent of blood leukocytes 8.2 % [facility] - Absolute Lymphocytes 0.8 CELLS/UL [facility] 0.9 - 3.9 Low mean platelet volume 11.5 (?) [facility] - platelet count 394.0 THOUSAND/ UL [facility] 100.0 - 400.0 mean corpuscular hemoglobin concentration, RBC 29.1 G/DL [facility] 31.0 - 38.0 Low mean corpuscular hemoglobin, RBC 19.6 pg [facility] 25.0 - 35.0 Low mean corpuscular volume, [facility] - 100.0 Low hematocrit, blood 35.1 % [facility] 35.0 - 55.0 hemoglobin, blood 10.2 g/dL [facility] 11.5 - 16.5 Low erythrocyte count, whole blood 5.2 MILLION/U L [facility] 3.5 - 5.5 hemoglobin A1C, blood, as % of total hemoglobin 5.6 % [facility] 4.0 - 6.0 alanine aminotransferase (SGPT), serum 16 1/L [facility] aspartate aminotransferase (SGOT), serum 22 1/L [facility] creatinine, serum 0.82 mg/dL [facility] potassium, serum 4.5 mmol/L [facility] Naz[facility] sodium, serum 139 mmol/L [facility] Nazario platelet count 334 10*3/uL [facility] hematocrit, blood 32.5 % [facility] alanine aminotransferase (SGPT), serum 16 1/L [facility] aspartate aminotransferase (SGOT), serum 16 1/L [facility] blood glucose, random 182 mg/dL [facility] creatinine, serum 0.85 mg/dL [facility] urea nitrogen, blood 16 mg/dL [facility] potassium, serum 4.2 mmol/L [facility] sodium, serum 139 mmol/L [facility] platelet count 366 10*3/mm3 [facility] hematocrit, blood 33.1 % [facility] alanine aminotransferase (SGPT), serum 17 1/L [facility] aspartate aminotransferase (SGOT), serum 21 1/L [facility] creatinine, serum 0.75 mg/dL [facility] potassium, serum 3.9 mmol/L [facility] sodium, serum 139 mmol/L [facility] globulins, serum, total 2.2 g/dL [facility] C-reactive protein, serum 6.9 mg/dL [facility] Estimated Glomerular Filtration Rate (calc) 84 mL/min/{1 .73_m2} [facility] albumin/globulin ratio, serum 2.0 [facility] protein, total, serum 6.5 g/dL [facility] albumin, serum 4.3 g/dL [facility] bilirubin, serum, total 0.4 mg/dL [facility] alkaline phosphatase, serum 88 1/L [facility] alanine aminotransferase (SGPT), serum 13 1/L [facility] aspartate aminotransferase (SGOT), serum 16 1/L [facility] calcium, serum 9.0 mg/dL [facility] blood glucose, fasting 226 mg/dL [facility] creatinine, serum 0.76 mg/dL [facility] urea nitrogen, blood 16 mg/dL [facility] carbon dioxide, serum, total 21 mmol/L [facility] chloride, serum 102 mmol/L [facility] potassium, serum 3.9 mmol/L [facility] sodium, serum 139 mmol/L [facility] platelet count 366 10*3/uL [facility] red blood cell distribution width 16.2 % [facility] mean corpuscular hemoglobin concentration, RBC 31.7 g/dL [facility] mean corpuscular hemoglobin, RBC 20.0 pg [facility] mean corpuscular volume, RBC 63 fL [facility] hematocrit, blood 33.1 % [facility] hemoglobin, blood 10.5 g/dL [facility] erythrocyte (RBC) count 5.26 10*6/mm3 [facility] neutrophils, segmented as percent of blood leukocytes 8.7 % [facility] monocyte count, blood 0.2 10*3/mm3 [facility] lymphocyte count, blood 0.8 10*3/mm3 [facility] neutrophils as percent of blood leukocytes 86 % [facility] monocytes as percent of blood leukocytes 2 % [facility] lymphocytes as percent of blood leukocytes 8 % [facility] leukocyte count, blood 8.9 10*3/mm3 [facility] C-reactive protein, serum 8.2 mg/dL [facility] globulins, serum, total 2.3 g/dL [facility] Estimated Glomerular Filtration Rate (calc) 71 mL/min/{1 .73_m2} [facility] albumin/globulin ratio, serum 2.0 [facility] protein, total, serum 6.5 g/dL [facility] albumin, serum 4.6 g/dL [facility] bilirubin, serum, total 0.6 mg/dL [facility] alkaline phosphatase, serum 69 1/L [facility] alanine aminotransferase (SGPT), serum 14 1/L [facility] aspartate aminotransferase (SGOT), serum 22 1/L [facility] calcium, serum 9.6 mg/dL [facility] blood glucose, fasting 110 mg/dL [facility] creatinine, serum 0.88 mg/dL [facility] urea nitrogen, blood 24 mg/dL [facility] carbon dioxide, serum, total 23 mmol/L [facility] chloride, serum 102 mmol/L [facility] potassium, serum 4.4 mmol/L [facility] sodium, serum 141 mmol/L [facility] platelet count 393 10*3/uL [facility] red blood cell distribution width 15.7 % [facility] mean corpuscular hemoglobin concentration, RBC 31.9 g/dL [facility] mean corpuscular hemoglobin, RBC 20.3 pg [facility] mean corpuscular volume, RBC 64 fL [facility] hematocrit, blood 32.9 % [facility] hemoglobin, blood 10.5 g/dL [facility] erythrocyte (RBC) count 5.17 10*6/mm3 [facility] neutrophils, segmented as percent of blood leukocytes 7.2 % [facility] monocyte count, blood 0.4 10*3/mm3 [facility] lymphocyte count, blood 1.1 10*3/mm3 [facility] neutrophils as percent of blood leukocytes 81 % [facility] monocytes as percent of blood leukocytes 5 % [facility] lymphocytes as percent of blood leukocytes 12 % [facility] leukocyte count, blood 8.8 10*3/mm3 [facility] bilirubin, serum, direct 0.14 mg/dL [facility] protein, total, serum 6.7 g/dL [facility] albumin, serum 4.3 g/dL [facility] bilirubin, serum, total 0.4 mg/dL [facility] alkaline phosphatase, serum 78 1/L [facility] alanine aminotransferase (SGPT), serum 12 1/L [facility] aspartate aminotransferase (SGOT), serum 12 1/L [facility] C-reactive protein, serum 3.6 mg/dL [facility] platelet count 336 10*3/uL [facility] red blood cell distribution width 17.3 % [facility] Aravind mean corpuscular hemoglobin concentration, RBC 32.6 g/dL [facility] mean corpuscular hemoglobin, RBC 21.4 pg [facility] mean corpuscular volume, RBC 66 fL [facility] hematocrit, blood 28.9 % [facility] hemoglobin, blood 9.4 g/dL [facility] erythrocyte (RBC) count 4.41 10*6/mm3 [facility] monocyte count, blood 0.2 10*3/mm3 [facility] lymphocyte count, blood 0.8 10*3/mm3 [facility] monocytes as percent of blood leukocytes 2 % [facility] lymphocytes as percent of blood leukocytes 9 % [facility] leukocyte count, blood 8.9 10*3/mm3 [facility] HISTORY OF MEDICATION USE Medication Status Instructions Dates Provider Indications Com ments ATENOLOL 25 MG ORAL TABLET active ONE TAB. DAILY ARSLAN CARLISLE MD TRIFLUOPERAZINE HCL 2 MG ORAL TABLET active ONE TABLET THREE TIMES DAILY ARSLAN CARLISLE MD NORTRIPTYLINE HCL 25 MG ORAL CAPSULE active ONE CAPSULE THREE TIMES DAILY ARSLAN CARLISLE MD MECLIZINE HCL 25 MG ORAL TABLET active ONE TABLET TWICE DAILY ARSLAN CARLISLE MD PREDNISONE 5 MG ORAL TABLET active ONE TABLET DAILY ARSLAN CARLISLE MD POTASSIUM CHLORIDE PILO ER 10 MEQ ORAL TABLET EXTENDED RELEASE active ONE TABLET TWICE DAILY ARSLAN CARLISLE MD FUROSEMIDE 40 MG ORAL TABLET active Take one tablet daily Priscilla Garza RN ORENCIA SOLUTION PREFILLED SYRINGE active FUSION ONCE A MONTH ARSLAN CARLISLE MD METHOTREXATE 2.5 MG ORAL TABLET active TWO TABLETS WEEKLY ARSLAN CARLISLE MD KLOR-CON M10 10 MEQ ORAL TABLET EXTENDED RELEASE completed ONE TAB TWICE DAILY - ARSLAN CARLISLE MD INSURANCE PROVIDERS Payer name Policy type / Coverage type [place] [employer] party ID [place] [employer] [id number] TREATMENT PLAN Date Name TSH, 3RD GENERATION W/REFLEX TO FT4 HEMOGLOBIN A1c LIPID PANEL COMPREHENSIVE METABO LIC PANEL, W/EGFR CBC (INCLUDES DIFF/P LT) HISTORY OF PROCEDURES Procedure Date Procedure Name Provider Procedure Notes S tatus ePrescribe - Check t his box if eRx is used ARSLAN CARLISLE MD completed
--- OUTSIDE RECORDS SUMMARY | 2025-01-01 12:56 | XMS_ITS | Clinical Summary ---
Author Organization [facility] Address [address] [place] [address] Care Team Providers Care Irrigation Service Technician Name Role Phone Mara Kelley MD Unavailable [phone] Jay Pulido MD Primary Care Provider [phone] Source Comments [facility],non-owned Affiliates and Associated Physician Practices is amultiple site organization consisting of ambulatory clinics and hospital sitesin [place], [place], [place] and [place]. This disclosure is being madepursuant to the Care Everywhere program and may not contain all information available regarding this patient. Last updated 18.[facility] Allergies Active Allergy Reactions Criticality Noted Date Comments Iron 10/02/2015 Has thalassemia Medications * Be aware that medications may not be up to date on this document. Alwaysverify current medications with the patient. 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 factor (HCC),Vitamin D deficiency Take 1 (one) tablet by mouth once daily 0 07/18/20 15 Active potassium chloride SA (MICRO-K) 10 MEQ capsuleIndicat ions:Rheumatoi d arthritis of 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 factor (HCC) Take 1 (one) capsule by mouth once daily 0 10/27/19 16 Active folic acid (FOLVITE) 1 MG tablet TAKE 1 TABLET BY MOUTH EVERY DAY 30 tablet 5 04/13/20 18 Active ARIPiprazole (ABILIFY) 2 MG tablet Take 1 (one) tablet by mouth once daily 02/03/20 19 Active metoprolol succinate XL 24hr (TOPROL XL) 25 MG tablet Take 1 (one) tablet by mouth once daily 08/17/19 21 Active diclofenac sodium (Voltaren) 1 % gel Apply 2 (two) g to affected area 4 times daily 100 g 3 11/10/19 23 Active cetirizine (ZyrTEC) 10 MG tablet 12/07/19 24 Active fluticasone propionate (Flonase) 50 MCG/ACT nasal spray 12/06/19 24 Active nortriptyline (Pamelor) 25 MG capsule TAKE 1 CAPSULE BY MOUTH EVERY DAY AT BEDTIME 90 capsule 12/27/19 24 Active nortriptyline (Pamelor) 50 MG capsuleIndicat ions:Neuropath ic pain Take 1 (one) capsule by mouth at bedtime 90 capsule 3 01/03/20 24 Active gabapentin (Neurontin) 300 MG capsuleIndicat ions:Neuropath ic pain TAKE 1 CAPSULE BY MOUTH SEVEN TIMES DAILY 180 capsule 11 01/03/20 24 Active albuterol HFA (Proventil; Ventolin; Proair) 108 (90 Base) MCG/ACT inhaler INHALE 2 PUFFS BY MOUTH EVERY 4 HOURS NEEDED 8.5 g 02/01/20 24 Active cyclobenzaprin e (Flexeril) 10 MG tabletIndicati ons:Pain of lower extremity, unspecified laterality Take 1 (one) tablet by mouth nightly as needed for Muscle Spasms 30 tablet 1 07/18/20 24 Active predniSONE (Deltasone) 1 MG tabletIndicati ons:Rheumatoid arthritis of 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 factor (HCC),Positive FRANCINE (antinuclear antibody),High risk medications (not anticoagulants ) long-term use,Immunosupp ressed status (HCC),Flare of rheumatoid arthritis (HCC) TAKE 3 TABLETS BY MOUTH DAILY 270 tablet 11/29/19 25 Active vitamin D, ergocalciferol , (Drisdol) 1.25 MG (57751 UT) capsuleIndicat ions:Rheumatoi d arthritis of 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 factor (HCC),Vitamin D deficiency TAKE 1 CAPSULE BY MOUTH EVERY OTHER WEEK 6 capsule 11/29/19 25 Active methotrexate 2.5 MG tabletIndicati ons:Rheumatoid arthritis of 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 factor (HCC),Positive FRANCINE (antinuclear antibody),Poly arthralgia TAKE 3 TABLETS BY MOUTH EVERY 7 DAYS 12 tablet 01/02/20 25 Active potassium chloride ER (Klor-Con M) 10 MEQ tablet Oral 11/16/19 24 Active Paxlovid, 300/100, TAKE 2 NIRMATRELVIR TABLETS AND 1 RITONAVIR TABLET TOGETHER BY MOUTH TWICE DAILY FOR 5 DAYS 06/05/20 24 Active metFORMIN (Glucophage) 850 MG tablet Oral 11/16/19 24 Active fluticasone-sa lmeterol (Advair/Wixela ) 500-50 MCG/ACT inhaler Inhale by mouth every 12 hours 11/02/19 25 Active methotrexate 2.5 MG tablet Oral 11/16/19 24 Active abatacept (Orencia) IV injection ABATACEPT (WITH MALTOSE) 250 MG INTRAVENOUS SOLUTION 11/16/19 24 Active predniSONE (Deltasone) 5 MG tablet Please take 15 mg PO x 5 days, 10 mg PO x5 days and 5 mg PO x 5 days 30 tablet 01/01/20 25 Active hydrocortisone (HYTONE) 2.5 % ointment 10/28/19 22 2024 Discontinued(L ist Clean-Up) ketoconazole (NIZORAL) 2 % cream 10/11/19 22 2024 Discontinued(L ist Clean-Up) methylPREDNISo lone (Medrol Dosepak) 4 MG tablet Take by mouth as directed 1 Each 08/29/19 25 2024 Discontinued(L ist Clean-Up) methotrexate 2.5 MG tabletIndicati ons:Rheumatoid arthritis of 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 factor (HCC) TAKE 3 TABLETS BY MOUTH EVERY 7 DAYS 12 tablet 11/29/19 25 2024 Discontinued Active Problems Problem Noted Date Diagnosed Date Influenza due to identified novel influenza A virus with other respiratory manifestations 12/31/2024 Abnormal gait 10/03/2024 Abnormal posture 10/03/2024 Cerebral ischemia 10/03/2024 Cervical spine disease 10/03/2024 COPD (chronic obstructive pulmonary disease) 11/2024 Drug-induced immunodeficiency 10/03/2024 Fall 10/03/2024 Asthenia 10/03/2024 Incoordination 10/03/2024 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 10/03/2024 Sepsis 10/03/2024 Simple goiter 10/03/2024 Generalized anxiety disorder 11/16/2023 Hereditary and idiopathic neuropathy, unspecifie d 11/16/2023 Recurrent major depression in full remission Alpha thalassemia minor 06/25/2019 Osteopenia of multiple sites 02/12/2019 High risk medications (not anticoagulants) long- term use 02/12/2019 Immunosuppressed status 05/12/2018 Overview (05/12/2018): Mara Kelley MD at 02/23/2018 Neuropathic pain 01/04/2018 Edema 09/29/2017 Idiopathic peripheral neuropathy 05/31/2017 Rheumatoid arthritis of [facility] without organ or system involvement with positive rheumatoid factor 05/27/2015 Overview (06/08/2015): Dx made by Dr. Agee on 07/2008 based on stiffness; symmetrical arthritis; CCP (+). Treated with prednisone/ MTX. Added Chandaia 2008. Type 2 diabetes mellitus with peripheral neuropa thy 08/19/2011 Overview (08/19/2011): Hyperglycemia noted 08/2011. Degeneration of lumbar or lumbosacral interverte bral disc 06/03/2011 Displacement of lumbar inter vertebral disc without myelopathy 06/03/2011 Systolic murmur 11/21/2009 Elevated antinuclear antibody (FRANCINE) level 2008 Overview (03/24/2010): FRANCINE 1:80 on 12/2009 Essential hypertension 05/14/2009 Overview (05/01/2015): Microcytic Anemia-THALASSEMIA TRAIT 09/07/2008 Depression 09/07/2008 Encounters Date Type Department Care Team Description 12/31/2024 1:30 PM CDT Office Visit [facility] - Rheumatology [id number] [place] [address] Angela Murrieta, SOLAR PROJECT MANAGER-ANTHROPOLOGY DEPARTMENT CHAIR Seropositive rheumatoid arthritis of multiple sites (HCC) (Primary Dx); Rheumatoid arthritis of 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 factor (HCC); Positive FRANCINE (antinuclear antibody); High risk medications (not anticoagulants) long-term use; Immunosuppressed status (HCC); Flare of rheumatoid arthritis (HCC); Vitamin D deficiency; Polyarthralgia; Osteopenia of multiple sites; Postmenopausal osteoporosis; Lassitude; Pain and swelling of lower extremity, unspecified laterality 12/29/2024 Refill [facility] - Rheumatology [id number] [place] [address] [address] [place], [place] [id number] Mara Kelley MD Refill Request 11/25/2024 Refill [facility] Rheumatology [id number] [place] [address] [address] [place] [address] Mara Kelley MD Refill Request 10/03/2024 Telephone [facility] Rheumatology [address] [place] [address], [address] [place] [address] Mara Kelley MD Update from Last 3 Months Immunizations Immunization Administration Dates Next Due Covid Moderna primary monova lent 12+ yr 0.5mL 10/10/2020 FLU VACCINE QUAD IIV4 SPLIT 0.25 ML IM 06/07/2018 INFLUENZA VACCINE 05/16/2023 INFLUENZA VACCINE, ADJUVANTE D, QUADR. (FLUAD QUADRIVALENT; 65Y+) (AIIV4) 05/19/2020 INFLUENZA VACCINE, ADJUVANTE D, TRIV. (FLUAD TRIVALENT; 65Y+) (AIIV3) 05/11/2024 INFLUENZA VACCINE, HIGH-DOSE , QUADR. (FLUZONE HIGH-DOSE QUADRIVALENT; 65Y+), 0.7 ML (HD-IIV4) 06/15/2022,05/15/2021,06/15/2019,2017,05/10/2018,07/15/2017,06/03/2016,1 09/03/2014,06/18/2014,05/11/2013 PNEUMOCOCCAL PPSV23 05/15/2021 TDAP (7yrs+) 05/05/2024 Family History Medical History Relation Name Comments Other Brother Anemia Heart Disease Father Arthritis Mother Arthritis - Rheumatoid Mother Heart Failure Mother Other Mother Anemia Cancer Sister 1 Other Sister 1 Anemia Arthritis - Rheumatoid Sister 2 Migraine Sister 2 Other Sister 2 Anemia Relation Name Status Comments Brother Alive Father (Age 78) Mother (Age 70) Sister 1 Sister 2 Alive Social History Tobacco Use Types Packs/Day Years Used Date Smoking Tobacco: Never Smokeless Tobacco: Never Tobacco Cessation:Counseling Given: Not Answered Alcohol Use Standard Drinks/Week Comments No 0 (1 standard drink = 0.6 oz pur e alcohol) PHQ-2 Answer Date Recorded Patient Health Questionnaire-2 Score 0 04/25/2024 Comments No Sex and Gender Information Value Date Recorded Sex Assigned at Not on file Legal Sex Female 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 Gender Identity Not on file Sexual Orientation Not on file Occupation Industry Job Start Date Job End Date Retired Not on file Not on file Not on file Last Filed Vital Signs Vital Sign Reading Time Taken Comments Blood Pressure 151/53 12/31/2024 1:10 PM CDT Pulse 72 12/31/2024 1:10 PM CDT Temperature 36.3 C (97.4 F) 12/31/2024 1:10 PM CDT Respiratory Rate 18 08/29/2024 2:12 PM FLIGHT COMMUNICATIONS OPERATOR Oxygen Saturation 97% 12/31/2024 1:10 PM CDT Inhaled Oxygen Concentration - - Weight 85.7 kg (189 lb) 12/31/2024 1:10 PM CDT Height 165.1 cm (5' 5) 12/31/2024 1:10 PM CDT Body Mass Index 31.45 12/31/2024 1:10 PM CDT Plan of Treatment Upcoming Encounters Date Type Department Care Team (Late st Contact Info) Description 01/29/2025 1:00 PM CDT Appointment [facility] - Rheumatology [address] [place] [address], [address] [place] [address] [place]a [place] [id number] [place], [place] [address] [address] [place] [phone] 04/02/2025 1:15 PM CDT Office Visit [facility] - Rheumatology [address] [place] [address] [address] [place] [address] [place] [id number] [facility] [address] [place] [phone] Health Maintenance Due Date Last Done Comments MEDICARE AWV 12 MONTHS 1948 ZOSTER VACCINE (1 of 2) 1967 DIABETES-STATIN 1988 DIABETES RETINOPATHY SCREENING 05/18/2012 DIABETES-FOOT EXAM WITH MONOFILAMENT 05/18/2012 DIABETES-HGB A1C 05/18/2012 PNEUMOCOCCAL VACCINE 50+ (2 of 2 - PCV) 05/15/2022 05/15/2021 Respiratory Syncytial Virus (RSV) Vaccine Pt: or over 60 yrs (1 - 1-dose 75+ series) 2023 COVID-19 VACCINE ( - season) 2024 07/27/2021, 11/14/2020, 10/10/2020 DEPRESSION SCREENING 08/01/2024 04/25/2024 DIABETES - URINE PROTEIN SCREENING 08/01/2024 DIABETES-SERUM CREATININE 10/03/20252024, 10/03/2024, 10/02/2024, Additional history exists DTAP/TDAP/TD VACCINES (2 - Td or Tdap) 05/05/2034 05/05/2024 BONE DENSITY TESTING Completed 03/04/2020, 04/28/2017, 12/17/2014 INFLUENZA VACCINE Completed 05/11/2024, , 06/15/2022, Additional history exists HEPATITIS C SCREENING Completed 09/25/2024 , 09/16/2023, 06/16/2022, Additional history exists HEPATITIS B VACCINE Aged Out No longe r eligible based on patient's age to complete this topic HIB VACCINE Aged Out No longer eligi ble based on patient's age to complete this topic HPV VACCINE Aged Out No longer eligi ble based on patient's age to complete this topic MENINGOCOCCAL (Group B) VACCINE SHARED DECISION-MAKING Aged Out No longer eligible based on patient's age to complete this topic MENINGOCOCCAL GROUPS A/C/Y/W VACCINE Aged Out No longer eligible based on patient's age to complete this topic Procedures Procedure Name Priority Date/Time Associated Diagnosis Comments COMPREHENSIVE METABOLIC PANEL Routine 09/25/2024 1:58 PM FLIGHT COMMUNICATIONS OPERATOR Rheumatoid arthritis of 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 factor Positive FRANCINE (antinuclear antibody) High risk medications (not anticoagulants) long-term use Immunosuppressed status Vitamin D deficiency Polyarthralgia Osteopenia of multiple sites Postmenopausal osteoporosis HEPATITIS SCREEN ACUTE Routine 09/25/2024 1:56 PM FLIGHT COMMUNICATIONS OPERATOR Rheumatoid arthritis of 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 factor Positive FRANCINE (antinuclear antibody) High risk medications (not anticoagulants) long-term use Immunosuppressed status Vitamin D deficiency Polyarthralgia Osteopenia of multiple sites Postmenopausal osteoporosis Lassitude DEXA BONE DENSITY AXIAL SKELETON Routine 03/04/2020 1:10 PM CDT Postmenopausal osteoporosis from Last 3 Months or Most Recently Relevant to Health Maintenance Results * (ABNORMAL) COMPREHENSIVE METABOLIC PANEL (09/25/2024 1:58 PM FLIGHT COMMUNICATIONS OPERATOR) Glucose 159(H) 65 - 99 mg/dL [facility] Comment: Fasting reference interval For someone without known diabetes, a glucose value >125 mg/dL indicates that they may have diabetes and this should be confirmed with a follow-up test. BUN 11 7 - 25 mg/dL [facility] Creatinine 0.67 0.60 - 1.00 mg/dL [facility] eGFR by Cystatin C 91 > OR = 60 mL/min/1. 73m2 [facility] BUN/Creatinine Ratio SEE NOTE: 6 - 22 (calc) [facility] Comment: Not Reported: BUN and Creatinine are within reference range. Sodium 142 135 - 146 mmol/L [facility] Potassium 4.3 3.5 - 5.3 mmol/L [facility] Chloride 105 98 - 110 mmol/L [facility] CO2 28 20 - 32 mmol/L [facility] Calcium 9.1 8.6 - 10.4 mg/dL [facility] Protein Total 6.0(L) 6.1 - 8.1 g/dL [facility] Albumin 3.8 3.6 - 5.1 g/dL [facility] Globulin Total 2.2 1.9 - 3.7 g/dL (calc) [facility] Albumin/Globulin Ratio 1.7 1.0 - 2.5 (calc) [facility] Bilirubin Total 0.5 0.2 - 1.2 mg/dL [facility] Alkaline Phosphatase 90 37 - 153 U/L [facility] AST 16 10 - 35 U/L [facility] ALT 20 6 - 29 U/L [facility] Comment: Test Performed at: [facility] [address] AD KIM MD Blood BLOOD SPECIMEN / Unknown 09/25/2024 1:58 PM FLIGHT COMMUNICATIONS OPERATOR 09/25/2024 1:58 PM FLIGHT COMMUNICATIONS OPERATOR Mara Kelley MD LAB - CHEMISTRY ORDERABLES Jessica l Result [address] [address] * HEPATITIS SCREEN ACUTE (09/25/2024 1:56 PM FLIGHT COMMUNICATIONS OPERATOR) Hepatitis A Virus Antibody IgM NON-REACTI VE NON-REACT LILY [facility] Comment: For additional information, please refer to http://MCH+/faq/IFD909 (This link is being provided for informational/ educational purposes only.) Hepatitis B Virus Surface Antigen NON-REACTI VE NON-REACT LILY [facility] Comment: For additional information, please refer to http://MCH+/faq/ZCP123 (This link is being provided for informational/ educational purposes only.) Hepatitis B Core Virus Antibody IgM NON-REACTI VE NON-REACT LILY [facility] Comment: For additional information, please refer to http://MCH+/faq/YLE191 (This link is being provided for informational/ educational purposes only.) Hepatitis C Antibody NON-REACTI VE NON-REACT LILY [facility] Comment: HCV antibody was non-reactive. There is no laboratory evidence of HCV infection. In most cases, no further action is required. However, if recent HCV exposure is suspected, a test for HCV RNA (test code 21338) is suggested. For additional information please refer to http://MCH+/faq/BEX59z2 (This link is being provided for informational/ educational purposes only.) Test Performed at: [facility] [place] [address] [place] [address] AD KIM MD Blood BLOOD SPECIMEN / Unknown 09/25/2024 1:56 PM FLIGHT COMMUNICATIONS OPERATOR 09/25/2024 1:56 PM FLIGHT COMMUNICATIONS OPERATOR us Mara Kelley MD LAB - CHEMISTRY ORDERABLES Jessica michaels Result [facility] [id number] [place] [address] * DEXA BONE DENSITY AXIAL SKELETON (03/04/2020 1:10 PM CDT) Anatomical Region Laterality Modality Mammography 03/04/2020 1:17 PM CDT Narrative 03/04/2020 1:17 PM CDT BONE MINERAL DENSITY STUDY INDICATION: Postmenopausal ovarian failure - osteoporosis screening. FINDINGS: The average bone mineral density from L1 to L4 is1.409 g/cm2. T-score is 1.9. Z-score is 2.7. The average bone mineral density of the total right hip is 0.881 g/cm2. T-score is -1. Z-score is -0.1. Bone mineral density at the right femoral neck is 0.837 g/sq cm with T score -1.4 and Z score -0.3. When compared to prior examination of 04/28/2017 bone density has increased by 6.2% in the lumbar spine and has decreased by 0.3% in the proximal femur. ASSESSMENT: This patient is considered osteopenic according to World Health Organization criteria. Bone density is between 10 and 25% below young normal. Fracture risk is mild. Treatment is advised. WORLD HEALTH ORGANIZATION DEFINITIONS OSTEOPENIA = -1 TO -2.5 SD BELOW T-SCORE. OSTEOPOROSIS = LESS THAN -2.5 SD BELOW T-SCORE *Reading Radiologist: Lamar Rodriguez on 03/04/2020 at 1:17 PM Procedure Note Lamar Rodriguez MD - 03/04/2020 BONE MINERAL DENSITY STUDY INDICATION: Postmenopausal ovarian failure - osteoporosis screening. FINDINGS: The average bone mineral density from L1 to L4 is1.409 g/cm2. T-score is 1.9. Z-score is 2.7. The average bone mineral density of the total right hip is 0.881 g/cm2. T-score is -1. Z-score is -0.1. Bone mineral density at the right femoral neck is 0.837 g/sq cm with T score -1.4 and Z score -0.3. When compared to prior examination of 04/28/2017 bone density has increased by 6.2% in the lumbar spine and has decreased by 0.3% in the proximal femur. ASSESSMENT: This patient is considered osteopenic according to World Health Organization criteria. Bone density is between 10 and 25% below young normal. Fracture risk is mild. Treatment is advised. WORLD HEALTH ORGANIZATION DEFINITIONS OSTEOPENIA = -1 TO -2.5 SD BELOW T-SCORE. OSTEOPOROSIS = LESS THAN -2.5 SD BELOW T-SCORE *Reading Radiologist: Lamar Rodriguez on 03/04/2020 at 1:17 PM Mara Kelley MD DEXA ORDERABLES Final Result from Last 3 Months or Most Recently Relevant to Health Maintenance Insurance MEDICARE Advance Directives Documents on File Type Date Recorded Patient Shoe Stamper Expl anation Adv Directive/Living Will/POA 12/08/2017 3:28 PM Adv Directive/Living Will/POA 01/06/2017 8:42 AM Power of Foundry Supervisor - Crystal Montes Care Teams Irrigation Service Technician Relationship Specialty Start Date End Date Jay Pulido MD [address] [place] [address] PCP - General Family Medicine 12/21/22 [place] [id number] [phone] Rheumatology 10/02/15
--- OUTSIDE RECORDS SUMMARY | 2025-01-01 12:56 | XMS_ITS | Encounter Summary ---
Author Organization [facility] Address [address] [place] [address] Care Team Providers Care Freight Traffic Consultant Name Role Phone Mara Kelley MD Unavailable [phone] Jay Pulido MD Primary Care Provider [phone] Reason for Visit * Reason Onset Date Comments Update 12/13/2023 Encounter Details Date Type Department Care Team (Late st Contact Info) Description 12/13/2023 Telephone [facility] - Rheumatology [id number] [place] [address], [address] [place] [address] [place]a Kelley [place] [id number] [place] [address] [place] [phone] Update Social History Tobacco Use Types Packs/Day Years Used Date Smoking Tobacco: Never Smokeless Tobacco: Never Alcohol Use Standard Drinks/Week Comments No 0 (1 standard drink = 0.6 oz pur e alcohol) Comments No Sex and Gender Information Value Date Recorded Sex Assigned at Not on file Legal Sex Female 7: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 I will evaluate her * Telephone Encounter - Joie Cameron, RN - 12/13/2023 10:21 AM CDT Spoke with patients sister Jewell- regarding ongoing cough/ allergies? Or URI? Jaelyn has had a non productive cough x 2 weeks, and was seen by , negative COVID test, Chest XRAYok - Jewell would like Dr Kelley advised. Patient's sister denies SOB/CP / DIfficulty breathing Patient to be evaluated by Dr Kelley today at [facility] - if cleared by MD patient also has a Orencia Infusion scheduled today documented in this encounter Plan of Treatment Upcoming Encounters Date Type Department Care Team (Late st Contact Info) Description 01/29/2025 1:00 PM CDT Appointment [facility] - Rheumatology [address] [facility], [address] [place] [address] [place]a Kelley [place] [id number] [place] [address] [address] [place] [phone] 04/02/2025 1:15 PM CDT Office Visit [facility] - Rheumatology [id number] [place] [address] [address] [place] [address] [place] [id number] [place] [address] [address] [place] [phone] documented as of this encounter Visit Diagnoses Not on filedocumented in this encounter Care Teams Freight Traffic Consultant Relationship Specialty Start Date End Date Jay Pulido MD [address] [place] [phone] PCP - General Family Medicine 12/21/[address] [place] [address] [facility] [address] [place] [address] Rheumatology 10/02/15 documented as of this encounter
--- OUTSIDE RECORDS SUMMARY | 2025-01-01 12:56 | XMS_ITS | Encounter Summary ---
Author Organization [facility] Address [address] [place] [address] Care Team Providers Care Radiagraph Operator Name Role Phone Mara Kelley MD Unavailable [phone] Jay Pulido MD Primary Care Provider [phone] Reason for Visit * Reason Comments Follow-up Encounter Details Date Type Department Care Team (Late st Contact Info) Description 12/31/2024 1:30 PM CDT Office Visit [facility] - Rheumatology [address] 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) (Primary Dx); Rheumatoid arthritis of 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 factor (HCC); Positive FRANCINE (antinuclear antibody); High risk medications (not anticoagulants) long-term use; Immunosuppressed status (HCC); Flare of rheumatoid arthritis (HCC); Vitamin D deficiency; Polyarthralgia; Osteopenia of multiple sites; Postmenopausal osteoporosis; Lassitude; Pain and swelling of lower extremity, unspecified laterality Social History Tobacco Use Types Packs/Day Years Used Date Smoking Tobacco: Never Smokeless Tobacco: Never Alcohol Use Standard Drinks/Week Comments No 0 (1 standard drink = 0.6 oz pur e alcohol) PHQ-2 Answer Date Recorded Patient Health Questionnaire-2 Score 0 04/25/2024 Comments No Sex and Gender Information Value Date Recorded Sex Assigned at Not on file Legal 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 Gender Identity Not on file Sexual Orientation Not on file Occupation Industry Job Start Date Job End Date Retired Not on file Not on file Not on file documented as of this encounter Last Filed Vital Signs Vital Sign Reading Time Taken Comments Blood Pressure 151/53 12/31/2024 1:10 PM CDT Pulse 72 12/31/2024 1:10 PM CDT Temperature 36.3 C (97.4 F) 12/31/2024 1:10 PM CDT Respiratory Rate - - Oxygen Saturation 97% 12/31/2024 1:10 PM CDT Inhaled Oxygen Concentration - - Weight 85.7 kg (189 lb) 12/31/2024 1:10 PM CDT Height 165.1 cm (5' 5) 12/31/2024 1:10 PM CDT Body Mass Index 31.45 12/31/2024 1:10 PM CDT documented in this encounter Plan of Treatment Upcoming Encounters Date Type Department Care Team (Late st Contact Info) Description 01/29/2025 1:00 PM CDT Appointment [facility] - Rheumatology [address] [place] [address], [address] [place] [address] Mara Kelley MD [address] [place] [address] [address] [place] [address] 04/02/2025 1:15 PM CDT Office Visit [facility] - Rheumatology [address] [place] [address] [address] [place] [address] Mara Kelley MD [address] [place] [address] [address] [place] [phone] Scheduled Orders Name Type Priority Associated Diagnoses Orde r Schedule CBC WITH DIFFERENTIAL Lab Routine Rheumatoid arthritis of 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 factor (HCC) Positive FRANCINE (antinuclear antibody) High risk medications (not anticoagulants) long-term use Immunosuppressed status (HCC) Flare of rheumatoid arthritis (HCC) Vitamin D deficiency Polyarthralgia Osteopenia of multiple sites Postmenopausal osteoporosis Lassitude Seropositive rheumatoid arthritis of multiple sites (HCC) Ordered: 12/31/2024 COMPREHENSIVE METABOLIC PANEL Lab Routine Rheumatoid arthritis of 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 factor (HCC) Positive FRANCINE (antinuclear antibody) High risk medications (not anticoagulants) long-term use Immunosuppressed status (HCC) Flare of rheumatoid arthritis (HCC) Vitamin D deficiency Polyarthralgia Osteopenia of multiple sites Postmenopausal osteoporosis Lassitude Seropositive rheumatoid arthritis of multiple sites (HCC) Ordered: 12/31/2024 ERYTHROCYTE SEDIMENTATION RATE Lab Routine Rheumatoid arthritis of 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 factor (HCC) Positive FRANCINE (antinuclear antibody) High risk medications (not anticoagulants) long-term use Immunosuppressed status (HCC) Flare of rheumatoid arthritis (HCC) Vitamin D deficiency Polyarthralgia Osteopenia of multiple sites Postmenopausal osteoporosis [place]assitude Seropositive rheumatoid arthritis of multiple sites (HCC) Ordered: 12/31/2024 C-REACTIVE PROTEIN Lab Routine Rheumatoid arthritis of 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 factor (HCC) Positive FRANCINE (antinuclear antibody) High risk medications (not anticoagulants) long-term use Immunosuppressed status (HCC) Flare of rheumatoid arthritis (HCC) Vitamin D deficiency Polyarthralgia Osteopenia of multiple sites Postmenopausal osteoporosis [place]assitude Seropositive rheumatoid arthritis of multiple sites (HCC) Ordered: 12/31/2024 URINALYSIS W/MICROSCOPIC REFLEX TO CULTURE Lab Routine Rheumatoid arthritis of 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 factor (HCC) Positive FRANCINE (antinuclear antibody) High risk medications (not anticoagulants) long-term use Immunosuppressed status (HCC) Flare of rheumatoid arthritis (HCC) Vitamin D deficiency Polyarthralgia Osteopenia of multiple sites Postmenopausal osteoporosis [place]assitude Seropositive rheumatoid arthritis of multiple sites (HCC) Ordered: 12/31/2024 documented as of this encounter Visit Diagnoses Diagnosis Seropositive rheumatoid arthritis of multiple sites (HCC)- Primary Rheumatoid arthritis of 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 factor (HCC) Positive FRANCINE (antinuclear antibody) Other and unspecified nonspecific immunological findings High risk medications (not anticoagulants) long-term use Encounter for long-term (current) use of other medications Immunosuppressed status (HCC) Unspecified disorder of immune mechanism Flare of rheumatoid arthritis (HCC) Rheumatoid arthritis Vitamin D deficiency Polyarthralgia Pain in joint, multiple sites Osteopenia of multiple sites Postmenopausal osteoporosis Senile osteoporosis Lassitude Other malaise and fatigue Pain and swelling of lower extremity, unspecified laterality documented in this encounter Care Teams Radiagraph Operator Relationship Specialty Start Date End Date Jay Pulido MD [address] [place] [address] PCP - General Family Medicine 12/21/22 [place] [address] [phone] Rheumatology 10/02/15 documented as of this encounter
--- OUTSIDE RECORDS SUMMARY | 2025-01-01 12:56 | XMS_ITS | Encounter Summary ---
Author Organization [facility] Address [address] [facility] [place] [address] Care Team Providers Care Guest Service Manager Name Role Phone Mara Kelley MD Unavailable [phone] Darshan Ulloa MD Primary Care Provider [phone] Giovani Kulkarni MD Primary Care Provider [phone] Jay Pulido MD Primary Care Provider [phone] Reason for Visit * Reason Comments Refill Request Encounter Details Date Type Department Care Team (Late st Contact Info) Description 04/15/2019 Refill [facility] Neurosciences [address] [place] [address] [place] [address] [address] Refill Request Social History Tobacco Use Types Packs/Day Years Used Date Smoking Tobacco: Never Smokeless Tobacco: Never Alcohol Use Standard Drinks/Week Comments No 0 (1 standard drink = 0.6 oz pur e alcohol) Comments No Sex and Gender Information Value Date Recorded Sex Assigned at Not on file 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 Iron Has thalassemia Requested Prescriptions Pending Prescriptions Disp Refills ??? gabapentin (NEURONTIN) 300 MG capsule [Pharmacy Med Name: GABAPENTIN 300MG CAPSULES] 150 capsule 0 Sig: TAKE 1 CAPSULE BY MOUTH FIVE TIMES DAILY LAST FILL: 04/06/18 LAST OV: 04/06/18 documented in this encounter Plan of Treatment Upcoming Encounters Date Type Department Care Team (Late st Contact Info) Description 01/29/2025 1:00 PM CDT Appointment [facility] - Rheumatology [address] [place] [address], [address] [place] [address] Mara Kelley MD [address] [place] [address] [address] [place] [phone] 04/02/2025 1:15 PM CDT Office Visit [facility] - Rheumatology [address] [place] [address] Mara Kelley MD [address] [place] [phone] documented as of this encounter Visit Diagnoses Diagnosis Neuropathic pain Neuralgia, neuritis, and radiculitis, unspecified documented in this encounter Care Teams Guest Service Manager Relationship Specialty Start Date End Date Darshan Ulloa MD [address] [facility] [address] [place] [address] PCP - General Psychiatry 08/08/18 05/28/19 Giovani Kulkarni MD [address] [place] [phone] PCP - General Internal Medicine 05/29/19 12/20/22 Jay Pulido MD [address] [place] [phone] PCP - General Family Medicine 12/21/22 [place] [address] [address] Rheumatology 10/02/15 documented as of this encounter
--- OUTSIDE RECORDS SUMMARY | 2025-01-01 12:56 | XMS_ITS | Clinical Summary ---
Author Organization [facility] Franca Molina Address [address] [place] [address] Care Team Providers Care Child Health Associate Name Role Phone Andrés Estevez DO Primary Care Provider [phone] Allergies No known active allergies Medications abatacept (ORENCIA SUBCUT) Inject by subcutaneous injection. Active ARIPiprazole (ABILIFY) 2 mg tablet Take 2 mg by mouth daily. Active aspirin (ECOTRIN EC) 81 mg Tablet, Delayed Release (E.C.) Take 81 mg by mouth daily. Active folic acid (FOLVITE) 1 mg tablet Take 1 mg by mouth daily. Active furosemide (LASIX) 40 mg tablet Take 40 mg by mouth daily. Active gabapentin (NEURONTIN) 300 mg capsule Take 300 mg by mouth 5 times daily. Active methotrexate (RHEUMATREX) 2.5 mg Tablet Take 2.5 mg by mouth every 7 days. Active metoprolol tartrate (LOPRESSOR) 25 mg tablet Take 25 mg by mouth daily. Active nortriptyline (PAMELOR) 25 mg capsule Take 25 mg by mouth daily at bedtime. Active potassium chloride (KLOR-CON) 10 mEq Extended Release tablet Take 10 mEq by mouth daily with breakfast. Active predniSONE (DELTASONE) 1 mg tablet Take 1 mg by mouth. 4 TABS DAILY Active ergocalciferol, vitamin D2, (VITAMIN D ORAL) Take by mouth. Activ e Active Problems Problem Noted Date Diagnosed Date Alpha thalassemia minor 06/25/2019 RA (rheumatoid arthritis) 06/25/2019 Family History Medical History Relation Name Comments Diabetes Father Heart Disease Father Heart Disease Mother Cancer Sister 1 Relation Name Status Comments Brother Alive Father Mother Sister 1 Sister 2 Alive Social History Tobacco Use Types Packs/Day Years Used Date Smoking Tobacco: Never Smokeless Tobacco: Never Alcohol Use Standard Drinks/Week Comments Never 0 (1 standard drink = 0.6 oz pur e alcohol) Comments No Sex and Gender Information Value Date Recorded Sex Assigned at Not on file Legal Sex Female 10:50 AM CDT Gender Identity Not on file Sexual Orientation Not on file Last Filed Vital Signs Vital Sign Reading Time Taken Comments Blood Pressure 171/81 06/25/2019 9:52 AM ASSISTANT MEDIA PLANNER Pulse 81 06/25/2019 9:52 AM ASSISTANT MEDIA PLANNER Temperature 36.3 C (97.3 F) 06/25/2019 9:52 AM ASSISTANT MEDIA PLANNER Respiratory Rate - - Oxygen Saturation 95% 06/25/2019 9:52 AM ASSISTANT MEDIA PLANNER Inhaled Oxygen Concentration - - Weight 92 kg (202 lb 12.8 oz) 06/25/2019 9:52 AM ASSISTANT MEDIA PLANNER Height 165.1 cm (5' 5) 06/25/2019 9:52 AM ASSISTANT MEDIA PLANNER Body Mass Index 33.75 06/25/2019 9:52 AM ASSISTANT MEDIA PLANNER Plan of Treatment Health Maintenance Due Date Last Done Comments DIABETES ANNUAL FOOT EXAM 1966 DIABETES MICROALBUMIN ANNUAL SCREEN 1966 LDL CHOLESTEROL ANNUAL 1966 DTAP/TDAP/TD VACCINES (1 - Tdap) 1967 PNEUMOCOCCAL VACCINE 50+ YEA RS (1 of 2 - PCV) 1967 ZOSTER VACCINE (1 of 2) 1967 DIABETES ANNUAL RETINAL EXAM 09/07/2017 09/07/2016, 04/03/2015 DIABETES HBA1C Q 6 MONTHS 09/27/20202019, 08/17/2019, 02/22/2019, Additional history exists COVID-19 Vaccine (2 - Modern a risk series) 11/07/2020 10/10/2020 RSV VACCINE (60+ or ) (1 - 1-dose 75+ series) 2023 INFLUENZA VACCINE (#1) 2024 0, 06/15/2019, 06/02/2018, Additional history exists OSTEOPOROSIS SCREENING 03/04/2025 0, 03/04/2020, 03/04/2020, Additional history exists COLORECTAL SCREENING Discontinued 05/03/2018 Colorectal Cancer Screening Discontinued FIT-DNA Q 3 years Discontinued FIT/FOBT Q 1 year Discontinued Flex Sig/CT Colonography Q 5 years Discontinued Care Teams Child Health Associate Relationship Specialty Start Date End Date Andrés Estevez DO [address] [facility] [address] [facility] [address] [place] [address] PCP - General Internal Medicine 01/07/20
--- OUTSIDE RECORDS SUMMARY | 2025-01-01 12:56 | XMS_ITS | Encounter Summary ---
Author Organization [facility] Address [address] [place] [address] Care Team Providers Care Residential Leasing Agent Name Role Phone Mara Kelley MD Unavailable [phone] Jay Pulido MD Primary Care Provider [phone] Reason for Visit * Reason Comments Refill Request Encounter Details Date Type Department Care Team (Late st Contact Info) Description 12/29/2024 Refill [facility] - Rheumatology [id number] [place] [address] [place] [address] [place] [address] [facility] [address] [place] [address] Refill Request Social History Tobacco Use Types Packs/Day Years Used Date Smoking Tobacco: Never Smokeless Tobacco: Never Alcohol Use Standard Drinks/Week Comments No 0 (1 standard drink = 0.6 oz pur e alcohol) PHQ-2 Answer Date Recorded Patient Health Questionnaire-2 Score 0 04/25/2024 Comments No Sex and Gender Information Value Date Recorded Sex Assigned at Not on file 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 Gender Identity Not on file Sexual Orientation Not on file Occupation Industry Job Start Date Job End Date Retired Not on file Not on file Not on file documented as of this encounter Miscellaneous Notes * Telephone Encounter - Nicole Marroquin RN - 12/31/2024 4:45 PM CDT No protocol, provider must approve NON-BIOLOGIC REFILL REQUEST Last OV: 12/31/24 Next Appointment: 04/02/25 Last Fill: 11/28/24 (12/0RF) Recent Labs Component Name 09/25/24 1358 05/28/24 0811 03/01/24 0917 SODIUM 142 138 139 POTASSIUM 4.3 4.2 4.0 CHLORIDE 105 102 102 CO2 28 29 29 GLUCOSE 159* 114* 142* BUN 11 15 20 CREATININE 0.67 0.63 0.80 ALBUMIN 3.8 3.8 3.8 CALCIUM 9.1 9.1 9.2 AST 16 12 12 ALT 20 8 11 Recent Labs Component Name 09/25/24 1358 05/28/24 0811 03/01/24 0917 11/04/15 0925 04/29/15 1349 WBC 10.3 7.2 8.4 - 9.9 RBC 5.00 4.27 4.86 - 5.33* HGB 9.7* 8.6* 9.7* - 10.9* HCT 32.4* 30.5* 32.4* - 34.2* MCV 64.8* 71.4* 66.7* - 64.2* PLTCOUNT 401* 459* 339 - 305 NRBC - - - - 0 - = values in this interval not displayed. Last ESR: Recent Labs Component Name 09/25/24 1358 05/28/24 0811 03/01/24 0917 SEDRATE 8 14 11 Last 3 CRP: Recent Labs Component Name 09/25/24 1358 05/28/24 0811 03/01/24 0917 CRP 8.2* 10.5* 8.9* documented in this encounter Plan of Treatment Upcoming Encounters Date Type Department Care Team (Late st Contact Info) Description 01/29/2025 1:00 PM CDT Appointment [facility] - Rheumatology [address] [place] [address], [address] [place] [address] [place] [address] [facility] [address] [place] [phone] 04/02/2025 1:15 PM CDT Office Visit [facility] - Rheumatology [address] [facility] [address] [place] [address] [place] [address] [facility] [address] [place] [address] documented as of this encounter Visit Diagnoses Diagnosis Positive FRANCINE (antinuclear antibody)- Primary Other and unspecified nonspecific immunological findings Rheumatoid arthritis of 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 factor (HCC) Polyarthralgia Pain in joint, multiple sites documented in this encounter Care Teams Residential Leasing Agent Relationship Specialty Start Date End Date Jay Pulido MD [address] [place] [phone] PCP - General Family Medicine 12/21/22 [place] [address] [facility] [address] [place] [address] Rheumatology 10/02/15 documented as of this encounter
== END 2025-01-01 12:50 | disposition home or self-care (01) ==
PROVIDERS: PCP Nurse Practitioner Family; Visit Provider Nurse Practitioner Family
DX: R23.8 Other skin changes (principal); M79.89 Other specified soft tissue disorders
CPT/HCPCS: 93970

== ENCOUNTER 2025-05-21 09:25 | Outpatient (CLI) | payer MEDICARE, MEDICAID, SELFPAY ==
--- NOTE | 2025-05-21 09:32 | ECHO_ITS ---
Patient Info Name: Jaelyn Araiza Age: 75 years : 1950 Gender: Female Ht: 63 in Wt: 188 lbs BSA: 1.98 m2 HR: 77 bpm BP: 136 / 62 mmHg Technical Quality: Good Exam Date: 05/21/2025 9:48 AM Patient Status: O Admit Date: 05/21/2025 Exam Type: CA echo doppler color flow Complete two-dimensional, color flow and Doppler transthoracic echocardiogram is performed. Forensic Photographer: Maynor Manzo III Attending Provider: Linda Roth Summary 1. Complete two-dimensional, color flow and Doppler transthoracic echocardiogram is performed. 2. Left ventricular chamber dimension is normal. 3. Left ventricular systolic function is normal, estimated at 60-65. 4. The left ventricular diastolic function is grade I diastolic dysfunction. 5. E/e' 12 is mildly elevated. 6. Left atrial chamber dimension is mildly enlarged. 7. Right atrial chamber dimension is mildly enlarged. 8. There is mild aortic valve sclerosis. 9. The mitral valve has a mildly calcified annulus. 10. There is trace tricuspid valve regurgitation. Left Ventricle E/e' 12 is mildly elevated. Left ventricular chamber dimension is normal. Left ventricular systolic function is normal, estimated at 60-65. The left ventricular diastolic function is grade I diastolic dysfunction. Right Ventricle Right ventricular chamber dimension is normal. Right ventricular systolic function is normal and with normal TAPSE 2.4 cm. Left Atria Left atrial chamber dimension is mildly enlarged. Right Atria Right atrial chamber dimension is mildly enlarged. Aortic Valve The aortic valve is trileaflet. There is mild aortic valve sclerosis. There is no aortic valve stenosis. There is no aortic valve regurgitation. Pulmonic Valve There is no pulmonic regurgitation. Mitral Valve The mitral valve has a mildly calcified annulus. There is no mitral valve stenosis. There is no mitral valve regurgitation. Tricuspid Valve There is trace tricuspid valve regurgitation. RVSP is not measured due to an inadequate TR jet. Pericardium/Pleural There is no pericardial effusion. Inferior Vena Cava Normal inferior vena cava with >50% collapse upon inspiration consistent with normal right atrial pressure, 5 mmHg. Aorta The aortic root size at the sinus of Valsalva is normal. Left Ventricular Outflow Tract Name Value Normal LVOT 2D LVOT Diameter 2.0 cm LVOT Doppler LVOT Peak Velocity 94 cm/s LVOT Peak Gradient 4 mmHg LVOT Mean Gradient 2 mmHg LVOT VTI 20 cm LVOT VTI/AV VTI Ratio 0.5 LVOT Stroke Volume 64 ml LVOT CO 4.9 l/min LVOT CI 2.5 l/min/m2 Pulmonic Valve Name Value Normal PV Doppler PV Peak Velocity 117 cm/s PV Peak Gradient 6 mmHg PV Mean Gradient 3 mmHg Mitral Valve Name Value Normal MV Doppler MV Peak Gradient 7 mmHg MV Mean Gradient 3 mmHg MV Area (Cont Eq VTI) 2.2 cm2 MV Diastolic Function MV E Peak Velocity 102 cm/s MV A Peak Velocity 127 cm/s MV E/A 0.8 MV Decel Time (PW) 199 ms MV Annular TDI MV E/e' (Septal) 13.2 MV E/e' (Lateral) 11.8 MV E/e' (Average) 12.5 Tricuspid Valve Name Value Normal Estimated PAP/RSVP RA Pressure 5 mmHg <=5 TV Annular TDI TV Lateral January s' Velocity 15.2 cm/s >=9.5 Aortic Valve Name Value Normal AV Doppler AV Peak Velocity 177 cm/s AV Peak Gradient 13 mmHg AV Mean Gradient 8 mmHg AV VTI 40 cm AV Area (Cont Eq VTI) 1.6 cm2 >=3.0 AV Area (Cont Eq Akshat) 1.7 cm2 AV DI (Akshat) 0.53 AV Regurgitation 2D LVOT Area 3.1 cm2 Ventricles Name Value Normal LV Dimensions 2D/MM IVS Diastolic Thickness (2D) 0.9 cm 0.6-1.0 LVID Diastole (2D) 4.9 cm 3.8-5.2 LVIW Diastolic Thickness (2D) 1.0 cm 0.6-0.9 LVID Systole (2D) 3.1 cm 2.2-3.5 LVOT Diameter 2.0 cm LV Mass (2D Cubed) 174.08 g 67.00-162.00 LV Mass Index (2D Cubed) 88 g/m2 43-95 Relative Wall Thickness (2D) 0.42 <=0.42 LV Fractional Shortening/Ejection Fraction 2D/MM LV Fractional Shortening (2D) 37 % 27-45 LV EF (2D Teichholz) 67 % LV Diastolic Volume (4C MOD) 115 ml LV EF (4C MOD) 62 % LV Diastolic Volume (2C MOD) 80 ml LV EF (2C MOD) 61 % LV Diastolic Volume (BP MOD) 105 ml 46-106 LV Diastolic Volume Index (BP MOD) 53 ml/m2 29-61 LV Systolic Volume (BP MOD) 40 ml 14-42 LV Systolic Volume Index (BP MOD) 20 ml/m2 8-24 LV EF (BP MOD) 62 % 54-74 LV Diastolic Length (4C) 7.9 cm LV Systolic Length (4C) 6.5 cm LV Stroke Volume (4C MOD) 71 ml Atria Name Value Normal LA Dimensions LA Volume (4C A-L) 63 ml LA Volume (BP A-L) 63 ml RA Dimensions RA Systolic [place] Length (4C) 4.9 cm 2.2-2.8 RA Area (4C) 17.4 cm2 <=18.0 Report Signatures
--- OUTSIDE RECORDS SUMMARY | 2025-05-21 10:49 | XMS_ITS | Clinical Summary ---
Author Organization [facility] Franca Molina Address [address] [place] [address] Care Team Providers Care Auto Body Technician Name Role Phone Andrés Estevez DO Primary Care Provider [phone] Allergies No known active allergies Medications abatacept [...] Comments Blood Pressure 171/81 06/25/2019 9:52 AM DIGITAL ACCOUNT MANAGER Pulse 81 06/25/2019 9:52 AM DIGITAL ACCOUNT MANAGER Temperature 36.3 C (97.3 F) 06/25/2019 9:52 AM DIGITAL ACCOUNT MANAGER Respiratory Rate - - Oxygen Saturation 95% 06/25/2019 9:52 AM DIGITAL ACCOUNT MANAGER Inhaled Oxygen Concentration - - Weight 92 kg (202 lb 12.8 oz) 06/25/2019 9:52 AM DIGITAL ACCOUNT MANAGER Height 165.1 cm (5' 5) 06/25/2019 9:52 AM DIGITAL ACCOUNT MANAGER Body Mass Index 33.75 06/25/2019 9:52 AM DIGITAL ACCOUNT MANAGER Plan of Treatment Health Maintenance Due Date Last Done Comments DIABETES ANNUAL FOOT EXAM 1966 DIABETES MICROALBUMIN ANNUAL SCREEN 1966 LDL CHOLESTEROL ANNUAL 1966 ZOSTER VACCINE (1 of 2) 1967 DIABETES ANNUAL RETINAL EXAM 09/07/2017 09/07/2016, 04/03/2015 DIABETES HBA1C Q 6 MONTHS 09/27/20202019, 08/17/2019, 02/22/2019, Additional history exists COVID-19 Vaccine (2 - Modern a risk series) 11/07/2020 10/10/2020 PNEUMOCOCCAL VACCINE 50+ YEA RS (2 of 2 - PCV) 05/15/2022 05/15/2021 RSV VACCINE (60+ or ) (1 - 1-dose 75+ series) 2023 INFLUENZA VACCINE (#1) 2025 4, 06/15/2022, 05/15/2021, Additional history exists OSTEOPOROSIS SCREENING 03/04/2025 0, 03/04/2020, 03/04/2020, Additional history exists DTAP/TDAP/TD VACCINES (2 - T d or Tdap) 05/05/2034 05/05/2024 COLORECTAL SCREENING Discontinued 05/03/2018 Colorectal Cancer Screening Discontinued FIT-DNA Q 3 years Discontinued FIT/FOBT Q 1 year Discontinued Flex Sig/CT Colonography Q 5 years Discontinued Care Teams Auto Body Technician Relationship Specialty Start Date End Date Andrés Estevez DO [id number] [facility] [address] [place] [id number] PCP - General Internal Medicine 01/07/20
== END 2025-05-21 09:26 | disposition home or self-care (01) ==
LOC: ANHCARD 09:29
PROVIDERS: PCP Nurse Practitioner Family; Visit Provider Nurse Practitioner Family
DX: I51.9 Heart disease, unspecified (principal); R01.1 Cardiac murmur, unspecified; R60.0 Localized edema
CPT/HCPCS: 93306